=== PATIENT | female | born 1990 | race African-American/Black ===

== ENCOUNTER 2016-10-13 12:34 | Outpatient (CLI) | payer MEDICAID ==
[2016-10-13 13:30] LABS: APPEARANCE,URINE CLOUDY; BILIRUBIN,URINE NEGATIVE (NEGATIVE); GLUCOSE, URINE NEGATIVE (NEGATIVE); KETONES,URINE NEGATIVE (NEGATIVE); LEUKOCYTE ESTERASE,URINE TRACE (NEGATIVE); NITRITE,URINE NEGATIVE (NEGATIVE); PROTEIN,URINE 30 mg/dL (NEGATIVE); URINE SPECIFIC GRAVITY 1.016; UROBILINOGEN,URINE NEGATIVE mg/dL (<2.0)
[2016-10-13 13:49] LABS: URINE BARBITURATES SCREEN NEGATIVE; URINE METHADONE SCREEN NEGATIVE; URINE OPIATES LOW NEGATIVE; URINE PHENCYCLIDINE SCREEN NEGATIVE
--- NOTE | 2016-10-13 14:00 | L&D Flow Sheet ---
LD Flowsheet Datetime Report Generated by CPN: 10/13/2016 14:00 Datetime: 10/13/2016 13:54 Vital Signs NBP Sys/Kristy/Mean (mmHg): 108 (QS system process) : 64 (QS system process) : 81 (QS system process) Pulse: 86 (QS system process) Datetime: 10/13/2016 13:24 Vital Signs NBP Sys/Kristy/Mean (mmHg): 108 (QS system process) : 70 (QS system process) : 84 (QS system process) Pulse: 83 (QS system process) Datetime: 10/13/2016 13:15 Maternal Assessment Level of Consciousness: Fully Conscious (Crystal Richard RN) DTR's/Clonus: DTRs 2+; No Clonus (Crystal Richard, RN) Headache: Denies (Crystal Richard, RN) Breath Sounds, Left: Clear and Equal (Crystal Richard, RN) Breath Sounds, Right: Clear and Equal (Crystal Richard, RN) Nausea/Vomiting: Denies (Crystal Richard, RN) RUQ Epigastric Pain: Denies (Crystal Richard, RN) Teaching Instructional Method: Verbal; Patient Instructed; Verbalized Understanding (Crystal Richard RN) Plan of Care: Plan of Care Discussed (Crystal Richard RN) Unit Routine: Wesley to Room; Call Morgan; Bed; Handwashing; Monitoring; Bathroom Privileges (Crystal Richard RN) Datetime: 10/13/2016 13:04 Respirations: 14 (Crystal Richard RN) Temperature (F): 97.9 (Crystal Richard RN) Temperature (C): 36.6 (QS system process) Pain Pain Scale: 3 (Crystal Richard RN) Pain Presence: Constant (Crystal Richard RN) Pain Type: Cramping (Crystal Richard RN) Pain Location: Abdomen (Crystal Richard RN) Pain Relief Measures: Comfort Measures (Crystal Richard RN)
[2016-10-13 14:32] LABS: ABSOLUTE EOSINOPHILS # (AUTO) 0.1 10^3/uL (0.0-0.6); ABSOLUTE LYMPHOCYTES (AUTO) 2.4 10^3/uL (0.5-4.7); ABSOLUTE MONOCYTES (AUTO) 0.4 10^3/uL (0.1-1.4); BASOPHILS % (AUTO) 0.4 % (0-2); EOSINOPHILS % (AUTO) 0.8 % (0-6); HEMATOCRIT 37.4 % (36.0-47.0); HEMOGLOBIN 13.1 g/dL (12.0-15.5); HGB HCT DIFFERENCE 1.9; LYMPHOCYTES % (AUTO) 21.8 % (13-45); MEAN CORPUSCULAR HEMOGLOBIN 31.8 pg (27.0-33.4); MEAN CORPUSCULAR VOLUME 91 fl (80-97); RED BLOOD COUNT 4.11 10^6/uL (3.72-5.28); RED CELL DISTRIBUTION WIDTH 13.6 % (11.5-14.0)
[2016-10-13 14:36] LABS: PROTHROMBIN TIME 12.7 SEC (11.4-15.4)
[2016-10-13 14:37] LABS: PARTIAL THROMBOPLASTIN TIME 29.5 SEC (23.5-35.8)
[2016-10-13 17:43] LABS: TOTAL RBC COUNT 2129; TYPE IN FILE? TYPE IN FILE; VOL OF FETOMATERNAL HEMORRHAGE 0 ML (0)
== END 2016-10-13 15:36 | disposition home or self-care (01) ==
LOC: LC 12:34
PROVIDERS: ATTEND Student in an Organized Health Care Education/Training Program
DX: O26.893 Other specified pregnancy related conditions, third trimester (principal); R10.9 Unspecified abdominal pain; W19.XXXA Unspecified fall, initial encounter; Z3A.28 28 weeks gestation of pregnancy
CPT/HCPCS: 59899; 36415; 85025; 85362; 85610; 85730; 81001; 85460; 80307; 82731; 76815; G0480 ×2

== ENCOUNTER 2016-12-26 09:46 | Outpatient (CLI) | payer MEDICAID ==
[2016-12-26 10:31] LABS: APPEARANCE,URINE SLIGHTLY-CLOUDY; BILIRUBIN,URINE NEGATIVE (NEGATIVE); GLUCOSE, URINE NEGATIVE (NEGATIVE); KETONES,URINE NEGATIVE (NEGATIVE); LEUKOCYTE ESTERASE,URINE NEGATIVE (NEGATIVE); NITRITE,URINE NEGATIVE (NEGATIVE); PROTEIN,URINE NEGATIVE (NEGATIVE); URINE SPECIFIC GRAVITY 1.006; UROBILINOGEN,URINE NEGATIVE mg/dL (<2.0)
[2016-12-26 10:36] LABS: AMNISURE (ROM) NEGATIVE (NEGATIVE)
[2016-12-26 10:47] LABS: URINE BARBITURATES SCREEN NEGATIVE; URINE METHADONE SCREEN NEGATIVE; URINE OPIATES LOW NEGATIVE; URINE PHENCYCLIDINE SCREEN NEGATIVE
--- NOTE | 2016-12-26 11:01 | Non Stress Test Report ---
Non Stress Test Datetime Report Generated by CPN: 12/26/2016 11:01 DEMOGRAPHIC EGA NST: 39.1 INDICATION Indication for Study: Ordered by Provider Indication for Study (NST) Other: LC MONITORING Monitor Explained: Monitor Explained; Test Explained; Patient Verbalized Understanding Time on Monitor: 12/26/2016 10:02 Time off Monitor: 12/26/2016 11:00 NST Duration: 58 NST INTERVENTIONS NST Interventions: PO Hydration; Reposition Patient Physician Notified NST: Dr. Ochoa BABY A: [id number] BABY A Movement : Present Contraction Frequency : rare FHR Baseline : 140 Accelerations : 15X15 Decelerations : None Variability : Moderate 6-25bpm NST Review: Meets Criteria for Reactive NST NST Review and Verified By : Christine Nance RN NST Results: Reactive NST COMMENTS NST Comments: Dr. Ochoa on unit, reviewed strip NST REPORT Report Trigger: Send Report
--- NOTE | 2016-12-26 13:06 | L&D Discharge Summary ---
OB Discharge Summary Datetime Report Generated by CPN: 12/26/2016 13:06 DISCHARGE DIAGNOSIS Diagnosis/Symptoms: False Labor Diagnoses/Symptoms Other: Not in labor Gestation: 39.0 Number of Babies in Womb: 1 Parity: 1 DIET/ACTIVITY/RESTRICTIONS Diet: Regular Activity: Normal Activity TEACHING/INSTRUCTIONS/REFERRALS Instructions Given To: Patient Instructions Understood: Patient Verbalized Understanding Referrals: None Educational Materials- Other: Kick Counts DISCHARGE INFORMATION Discharged AMA: No Discharge Date/Time: 10/13/2016 15:36 Discharged To: Home Discharge Provider Name: CRashmi Moody CNM Accompanied By: self Discharge Method: Ambulatory Condition: Stable FOLLOW UP INFORMATION Follow Up With: [facility] Follow Up On: As Scheduled Follow Up Phone Number: [facility] -
--- NOTE | 2016-12-26 16:45 | L&D Discharge Summary ---
OB Discharge Summary Datetime Report Generated by CPN: 12/26/2016 16:45 DISCHARGE DIAGNOSIS Diagnosis/Symptoms: False Labor Diagnoses/Symptoms Other: not ruptured; false labor Gestation: 39.1 Number of Babies in Womb: 1 Parity: 1 DIET/ACTIVITY/RESTRICTIONS Diet: Regular Activity: Normal Activity TEACHING/INSTRUCTIONS/REFERRALS Instructions Given To: Patient and family member Instructions Understood: Patient Verbalized Understanding; Support Person Verbalized Understanding Referrals: None Educational Materials- Other: kick counts DISCHARGE INFORMATION Discharged AMA: No Discharge Date/Time: 12/26/2016 11:02 Discharged To: Home Discharge Provider Name: Dr. Ochoa Accompanied By: family member Discharge Method: Ambulatory Condition: Stable FOLLOW UP INFORMATION Follow Up With: [facility] Follow Up On: As Scheduled Follow Up Phone Number: [facility] - GENERAL INSTR-CALL PROVIDER IF: Contractions: Contractions or cramps become more frequent than 8 in one hour or 4 in 20 minutes; Regular painful contractions every 5 minutes or less for one hour. Time your contractions from the beginning of one to the beginning of the next Pressure: Pressure in your vagina or lower abdomen that may feel like the baby is pushing down Period Like Cramps: Period-like cramps or low dull backache that may come and go Cramps/Diarrhea: Abdominal cramps that may be accompanied by diarrhea Gush of Fluid/Blood: Gush of fluid or blood from your vagina (it is normal to have spotting after vaginal exam or intercourse) Vaginal Discharge: Change in the type or amount of vaginal discharge Decreased Movement: Your baby is not moving as much as usual- 4 movements in 1 hour after drinking and resting on side Temperature: Temperature greater than 100.0(F) orally
--- NOTE | 2016-12-26 16:45 | Antepartum Discharge Summary ---
Antepartum DC Datetime Report Generated by CPN: 12/26/2016 16:45 DIET/ACTIVITY/RESTRICTIONS Diet: Regular (12/26/2016 11:02:Marivel Nance RN) Activity: Normal Activity (12/26/2016 11:02:Marivel Nance, RN) TEACHING/INSTRUCTIONS/REFERRALS Instructions Given To: Patient and family member (12/26/2016 11:02:Marivel Nance RN) Instructions Understood: Patient Verbalized Understanding; Support Person Verbalized Understanding (12/26/2016 11:02:Marivel Nance RN) Referrals: None (12/26/2016 11:02:Marivel Nance RN) Educational Materials- Other: kick counts (12/26/2016 11:02:Marivel Nance RN) DISCHARGE INFORMATION Discharged AMA: No (12/26/2016 11:02:Marivel Nance RN) Discharge Date/Time: 12/26/2016 11:02 (12/26/2016 11:02:Marivel Nance RN) Discharged To: Home (12/26/2016 11:02:Marivel Nance RN) Discharge Provider Name: Dr. Ochoa (12/26/2016 11:02:Marivel Nance RN) Accompanied By: family member (12/26/2016 11:02:Marivel Nance RN) Discharge Method: Ambulatory (12/26/2016 11:02:Marivel Nance RN) Condition: Stable (12/26/2016 11:02:Marivel Nance RN) FOLLOW UP INFORMATION Follow Up With: [facility] (12/26/2016 11:02:Marivel Nance RN) Follow Up On: As Scheduled (12/26/2016 11:02:Marivel Nance RN) Follow Up Phone Number: [facility] - (12/26/2016 11:02:Marivel Nance RN) GENERAL INSTR-CALL PROVIDER IF: Contractions: Contractions or cramps become more frequent than 8 in one hour or 4 in 20 minutes; Regular painful contractions every 5 minutes or less for one hour. Time your contractions from the beginning of one to the beginning of the next (12/26/2016 11:02:Marivel Nance RN) Pressure: Pressure in your vagina or lower abdomen that may feel like the baby is pushing down (12/26/2016 11:02:Marivel Nnace RN) Period Like Cramps: Period-like cramps or low dull backache that may come and go (12/26/2016 11:02:Marivel Nance RN) Cramps/Diarrhea: Abdominal cramps that may be accompanied by diarrhea (12/26/2016 11:02:Marivel Nance RN) Gush of Fluid/Blood: Gush of fluid or blood from your vagina (it is normal to have spotting after vaginal exam or intercourse) (12/26/2016 11:02:Marivel Nance RN) Vaginal Discharge: Change in the type or amount of vaginal discharge (12/26/2016 11:02:Marivel Nance RN) Decreased Movement: Your baby is not moving as much as usual- 4 movements in 1 hour after drinking and resting on side (12/26/2016 11:02:Marivel Nance RN) Temperature: Temperature greater than 100.0(F) orally (12/26/2016 11:02:Marivel Nance RN) Hypertension Signs/Symptoms: Severe headache which is not relieved 30 minutes after taking Tylenol(Acetaminophen); Blurry vision or spots before your eyes; Severe heartburn or pain on the upper right side of your abdomen that is not relieved by an antacid; Increased swelling in your face, hands or feet (12/26/2016 11:02:Marivel Nance RN) Urinary Output: Decreased urinary output or dark colored urine (12/26/2016 11:02:Marivel Nance RN)
--- NOTE | 2016-12-26 16:45 | L&D General Admission ---
General Admit Datetime Report Generated by CPN: 12/26/2016 16:45 INFORMATION Patient Age: 26 (10/13/2016 12:35:QS system process) EDC: 01/01/2017 00:00 (10/13/2016 12:51:ADAM Montoya) LMP: 03/27/2016 00:00 (10/13/2016 12:51:ADAM Montoya) : 5 (10/13/2016 12:51:ADAM Montoya) Para: 1 (10/13/2016 15:42:Crystal Richard RN) Para: 1 (10/13/2016 12:51:ADAM Montoya) Term: 1 (10/13/2016 12:51:Crystal Richard RN) : 0 (10/13/2016 12:51:Crystal Richard RN) Livin (10/13/2016 12:51:Crystal Richard RN) Cesareans: 0 (10/13/2016 12:51:Marivel Nance RN) Baby, Number in Womb: 1 (10/13/2016 15:42:Crystal Richard RN) CARE Primary Paint Stockman: [facility] (10/13/2016 12:51:Crystal Richard RN) Paint Stockman Other: [facility] (10/13/2016 12:51:Crystal Richard RN) Month of 1st Visit: June (10/13/2016 12:51:Crystal Richard RN) Prepregnancy Weight (lb): 122 (10/13/2016 12:51:Crystal Richard RN) Prepregnancy Weight (kg): 55.5 (10/13/2016 12:51:QS system process) Height (in): 66 (12/26/2016 10:09:QS system process) Height (in): 66 (10/13/2016 12:55:QS system process) ALLERGIES Medication Allergy: No (10/13/2016 12:51:Crystal Richard RN) Medication Allergies: No Known Allergies (12/26/2016) (12/26/2016 10:08:QS system process) Medication Allergies: No Known Allergies (07/07/2015) (10/13/2016 12:35:QS system process) Latex Allergy: No Latex Allergies (10/13/2016 12:51:Crystal Richard RN) Food Allergies: denies (10/13/2016 12:51:Marivel Nance RN) Environmental Allergies: denies (10/13/2016 12:51:Marivel Nance RN) COMMUNICATION Primary Language: Canadian (10/13/2016 12:51:Crystal Richard RN) Medical Tx Preferred Language: Canadian (10/13/2016 12:51:Crystal Richard RN) DEMOGRAPHICS Address: [address] [place] [id number] (10/13/2016 12:35:QS system process) Zipcode: [phone] (10/13/2016 12:35:QS system process) Home (10/13/2016 12:35:QS system process) SSN: [id number] (10/13/2016 12:35:QS system process) Next of Kin Name: AYAN JIANG (10/13/2016 12:35:QS system process) Next of Kin (10/13/2016 12:35:QS system process) Next of Kin Relationship: MO (10/13/2016 12:35:QS system process) Date of : 1990 (10/13/2016 12:35:QS system process) Marital Status: Single (10/13/2016 12:35:QS system process) Sex: Female (10/13/2016 12:35:QS system process) Race: (10/13/2016 12:35:QS system process) Ethnicity: Non- or (10/13/2016 12:35:QS system process) Anglican: None (10/13/2016 12:35:QS system process) DRUG AND ALCOHOL USE Alcohol: No (10/13/2016 12:51:Crystal Richard RN) Cigarettes: Former Smoker. [id number] (10/13/2016 12:51:Crystal Richard RN) Marijuana: Yes (10/13/2016 12:51:Crystal Richard RN) Marijuana Comments: early in (10/13/2016 12:51:Crystal Richard RN) Cocaine: No (10/13/2016 12:51:Crystal Richard RN) Other Illicit Drugs: No (10/13/2016 12:51:Crystal Richard RN) VACCINE HISTORY Influenza Vaccine: No (10/13/2016 12:51:Crystal Richard RN) Pneumococcal Vaccine: No (10/13/2016 12:51:Crystal Richard RN) Tetanus Vaccine: Uncertain (10/13/2016 12:51:Crystal Richard RN) Tdap Vaccine: Uncertain (10/13/2016 12:51:Crystal Richard RN) Hepatitis B Vaccine: Uncertain (10/13/2016 12:51:Crystal Richard RN) Feeding Preference: Both (10/13/2016 12:51:Crystal Richard RN) Benefit of Breast Feed Discussed: Yes (10/13/2016 12:51:Crystal Richard RN) Circumcision: N/A (10/13/2016 12:51:Crystal Richard RN) Classes Attended: No (10/13/2016 12:51:Crystal Richard RN) Tubal Ligation: Yes (10/13/2016 12:51:Crystal Richard RN) Tubal Authorization Signed: N/A (10/13/2016 12:51:Crystal Richard RN) Consent: N/A (10/13/2016 12:51:Crystal Richard RN) Consent Signed: N/A (10/13/2016 12:51:Crystal Richard RN) Pain Management Plans: Epidural (10/13/2016 12:51:Crystal Richard RN) Plans for Labor and Delivery: None (10/13/2016 12:51:Crystal Richard RN) Support Person: Ayan Jiang (10/13/2016 12:51:Crystal Richard RN) Support Person Relationship: Mother (10/13/2016 12:51:Crystal Richard RN) Cultural/Spritual Practice: No (10/13/2016 12:51:Crystal Richard RN) Spir/Cult Dietary Needs: No (10/13/2016 12:51:Crystal Richard RN) LIVING SITUATION/DISCHARGE PLAN Living Arrangements: House (10/13/2016 12:51:Crystal Richard RN) Adequate Access to:: Electric; Heat; Refrigeration; Plumbing/Running water; Phone; Transportation (10/13/2016 12:51:Crystal Richard RN) WIC Program: Yes (10/13/2016 12:51:Crystal Richard RN) Discharge Rose Grading Supervisor Person: Mother (10/13/2016 12:51:Crystal Richard RN) Person to Help after Discharge: Mother (10/13/2016 12:51:Crystal Richard RN) Currently Using Commun Resources: Yes (10/13/2016 12:51:Crystal Richard RN) Specify Current Resource Used: Food stamps (10/13/2016 12:51:Crystal Richard RN) Outside Agency/Broadcast Engineer: No (10/13/2016 12:51:Crystal Richard RN) Car Seat for Discharge: Yes (10/13/2016 12:51:Crystal Richard RN) Adoption Requested: No (10/13/2016 12:51:Crystal Richard RN) Pt Contact w/infant Post : N/A (10/13/2016 12:51:Crystal Richard RN) LABS Blood Type: O Positive (10/13/2016 12:51:Crystal Richard RN) Antibody Screen: negative (10/13/2016 12:51:Crystal Richard RN) Hemoglobin: 13.1 (10/13/2016 14:13:QS system process) Hematocrit: 37.4 (10/13/2016 14:13:QS system process) MCV: 91 (10/13/2016 14:13:QS system process) Group Beta Strep: Negative (10/13/2016 12:51:Marivel Nance RN) Group Beta Strep: negative (10/13/2016 12:51:Crystal Richard RN) Gonorrhea: Negative (10/13/2016 12:51:Marivel Nance RN) Chlamydia: Negative (10/13/2016 12:51:Crystal Richard RN) RPR/VDRL: Nonreactive (10/13/2016 12:51:Crystal Richard RN) HIV Exposure Test: Negative (10/13/2016 12:51:Crystal Richard RN) Hepatitis B: Negative (10/13/2016 12:51:Crystal Richard RN) Rubella: Immune (10/13/2016 12:51:Crystal Richard RN) Varicella: Non Susceptible (10/13/2016 12:51:Crystal Richard RN) OB/PREVIOUS HISTORY LMP: 03/27/2016 00:00 (10/13/2016 12:51:ADAM Montoya) Previous Procedures: Ultrasound; NST (10/13/2016 12:51:Crystal Richard RN) Current Procedures: Ultrasound (10/13/2016 12:51:Crystal Richard RN) History of Previous : No (10/13/2016 12:51:Crystal Richard RN) History of Gestational Diabetes: No (10/13/2016 12:51:Crystal Richard RN) History of PIH: No (10/13/2016 12:51:Crystal Richard RN) History of Incompetent Cervix: No (10/13/2016 12:51:Crystal Richard RN) History of Placenta Previa/Abrup: No (10/13/2016 12:51:Crystal Richard RN) History of Macrosomia: No (10/13/2016 12:51:Crystal Richard RN) History of IUGR: No (10/13/2016 12:51:Crystal Richard RN) History of Hemorrhage: No (10/13/2016 12:51:Crystal Richard RN) History of Loss/Stillborn: No (10/13/2016 12:51:Crystal Richard RN) History of : No (10/13/2016 12:51:Crystal Richard RN) History of D (Rh) Sensitization: No (10/13/2016 12:51:Crystal Richard RN) History Recurrent Loss/Stillborn: No (10/13/2016 12:51:Crystal Richard RN) History Depression/PP Depression: No (10/13/2016 12:51:Crystal Richard RN) History of Uterine Anomaly/DEEPA: No (10/13/2016 12:51:Crystal Richard RN) History of Infertility: No (10/13/2016 12:51:Crystal Richard RN) History of ART Treatment: No (10/13/2016 12:51:Crystal Richard RN) History of DEEPA: No (10/13/2016 12:51:Crystal Richard RN) Comments Obstetrical History: G1: 2007, , no complications G2: SAB 2008 G3: EAB 2014 G4: current (10/13/2016 12:51:Crystal Richard RN) MEDICAL HISTORY Med Hx Diabetes: No (10/13/2016 12:51:Crystal Richard RN) Med Hx Hypertension: No (10/13/2016 12:51:Crystal Richard RN) Med Hx Heart Disease: No (10/13/2016 12:51:Crystal Richard RN) Med Hx Autoimmune Disorder: No (10/13/2016 12:51:Crystal Richard RN) Med Hx Kidney Disease/UTI: No (10/13/2016 12:51:Crystal Richard RN) Med Hx Neurologic/Epilepsy: No (10/13/2016 12:51:Crystal Richard RN) Med Hx Psychiatric Disorders: Yes (10/13/2016 12:51:Crystal Richard RN) Med Hx Hepatitis/Liver Disease: No (10/13/2016 12:51:Crystal Richard RN) Med Hx Varicosities/Phlebitis: No (10/13/2016 12:51:Crystal Richard RN) Med Hx Thyroid Dysfunction: No (10/13/2016 12:51:Crystal Richard RN) Med Hx Trauma/Violence: No (10/13/2016 12:51:Crystal Richard RN) Med Hx Blood Transfusion: No (10/13/2016 12:51:Crystal Richard RN) Med Hx Pulmonary (Asthma,TB): No (10/13/2016 12:51:Crystal Richard RN) Med Hx Breast: No (10/13/2016 12:51:Crystal Richard RN) Med Hx CATH LAB TECH Surgery: No (10/13/2016 12:51:Crystal Richard RN) Med Hx Hospitalization/Surgery: Yes (10/13/2016 12:51:Crystal Richard RN) Med Hx Anesthetic Complications: No (10/13/2016 12:51:Crystal Richard RN) Med Hx Abnormal Pap Smear: Yes (10/13/2016 12:51:Crystal Richard RN) Other Medical Diseases: No (10/13/2016 12:51:Crystal Richard RN) Med Hx Significant Family Hx: No (10/13/2016 12:51:Crystal Richard RN) Details of Med/Surg Hx: Pt states she feels like she will have PP depression - pregancy not planned and pt constantly emotional, multiple abnl paps, chronic BV (10/13/2016 12:51:Crystal Richard RN) INFECTIOUS HISTORY Inf Hx Gonorrhea: No (10/13/2016 12:51:Crystal Richard RN) Inf Hx Chlamydia: No (10/13/2016 12:51:Crystal Richard RN) Inf Hx Syphilis: No (10/13/2016 12:51:Crystal Richard RN) Inf Hx HIV/AIDS: No (10/13/2016 12:51:Crystal Richard RN) Inf Hx Human Papilloma Virus: No (10/13/2016 12:51:Crystal Richard RN) Inf Hx Pt/Partner Genital Herpes: No (10/13/2016 12:51:Crystal Richard RN) Inf Hx Tuberculosis/Exposure: No (10/13/2016 12:51:Crystal Richard RN) Inf Hx Hepatitis B,C: No (10/13/2016 12:51:Crystal Richard RN) Inf Hx Rash or Viral Illness: No (10/13/2016 12:51:Crystal Richard RN) GENETIC HISTORY Gen Hx Age >=35 at RUDY: No (10/13/2016 12:51:Crystal Richard RN) Gen Hx Thalassemia: No (10/13/2016 12:51:Crystal Richard RN) Gen Hx Congenital Heart Defect: No (10/13/2016 12:51:Crystal Richard RN) Gen Hx Neural Tube Defect: No (10/13/2016 12:51:Crystal Richard RN) Gen Hx Down's Syndrome: No (10/13/2016 12:51:Crystal Richard RN) Gen Hx Jose-Sachs: No (10/13/2016 12:51:Crystal Richard RN) Gen Hx Froylan: No (10/13/2016 12:51:Crystal Richard RN) Gen Hx Familial Dysautonomia: No (10/13/2016 12:51:Crystal Richard RN) Gen Hx Sickle Cell Disease/Trait: No (10/13/2016 12:51:Crystal Richard RN) Gen Hx Hemophilia/Blood Disorder: No (10/13/2016 12:51:Crystal Richard RN) Gen Hx Muscular Dystrophy: No (10/13/2016 12:51:Crystal Richard RN) Gen Hx Cystic Fibrosis: No (10/13/2016 12:51:Crystal Richard RN) Gen Hx Huntingtons Chorea: No (10/13/2016 12:51:Crystal Richard RN) Gen Hx Mental Retardation/Autism: No (10/13/2016 12:51:Crystal Richard RN) Gen Hx Tested for Fragile X: No (10/13/2016 12:51:Crystal Richard RN) Gen Hx Other Inher/Chromosomal: No (10/13/2016 12:51:Crystal Richard RN) Gen Hx Maternal Metabolic DO: No (10/13/2016 12:51:Crystal Richard RN) Gen Hx Pt Father or FOB Defect: No (10/13/2016 12:51:Crystal Richard RN) Gen Hx Other Genetic History: No (10/13/2016 12:51:Crystal Richard RN) Gen Hx Drugs/Meds since LMP: Yes (10/13/2016 12:51:Crystal Richard RN) Gen Hx Medications: PNV, Flagyl, vaginal cream (10/13/2016 12:51:Crystal Richard RN)
--- NOTE | 2016-12-26 16:45 | L&D Flow Sheet ---
LD Flowsheet Datetime Report Generated by CPN: 12/26/2016 16:45 Datetime: 12/26/2016 10:58 Uterine Activity Monitor Mode: External (Marivel Nance RN) Quality: Mild (Marivel Nance RN) Resting Tone (Palpate): Relaxed (Marivel Nance RN) Contraction Comments: uterine irritability. patient denies contractions (Marivel Nance RN) Assessment A Monitor Mode: External US (Marivel Goyo, RN) FHR Baseline Rate : 140 (Marivel Goyo, RN) FHR Baseline Changes: No Baseline Change (Marivel Henderson, RN) Variability: Moderate 6-25 bpm (Marivel Henderson, RN) Accelerations: 15X15 (Marivel Henderson, RN) Decelerations: None (Marivel Goyo, RN) Datetime: 12/26/2016 10:50 Vital Signs Stage of : Antepartum (Marivel Goyo, RN) Communication Communication: Provider Orders Received (Marivel Nance RN) Provider Notified (Name): Dr. Ochoa on unit, reviewed reactive FHT strip. Notified of patient OB history, chief complaint of lower pelvic pressure and suspectyed rupture of membranes. Also notified of normal urinalysis, and negative amnisure results. Orders received to discharge patient home to self care. Discussed reasons to return. All questions answered. Agreeable to plan of care. (Marivel Nance RN) Datetime: 12/26/2016 10:49 I/O Interventions: Up to BR (Marivel Nance RN) Datetime: 12/26/2016 10:34 Vital Signs Stage of : Antepartum (Marivel Nance, RN) NBP Sys/Kristy/Mean (mmHg): 96 (QS system process) : 64 (QS system process) : 76 (QS system process) Pulse: 94 (QS system process) Respirations: 12 (Marivel Nance, RN) LaborFlag: Antepartum (QS system process) Datetime: 12/26/2016 10:30 Uterine Activity Monitor Mode: External; Palpation (Marivel Goyo, RN) Frequency (min): rare (Marivel Nacne, RN) Quality: Mild (Marivel Nance, RN) Resting Tone (Palpate): Relaxed (Marivel Nance, RN) Contraction Comments: patient denies feeling contractions at this time and none noted on monitor or by palpation. Patient report lower pelvic pressure. (Marivel Nance, RN) Assessment A Monitor Mode: External US (Marivel Nance, RN) FHR Baseline Rate : 140 (Marivel Nance, RN) FHR Baseline Changes: No Baseline Change (Marivel Nance, RN) Variability: Moderate 6-25 bpm (Marivel Goyo, RN) Accelerations: 15X15 (Marivel Mcnairard, RN) Decelerations: None (Marivel Nance, RN) Comments: reports positive movement (Marivel Nance, RN) Datetime: 12/26/2016 10:27 Monitor Interventions for UA: [place] Adjusted (Marivel Nance, RN) Quality: Mild (Marivel Nance, RN) Resting Tone (Palpate): Relaxed (Marivel Nance, RN) Assessment A Monitor Mode: External US (Marivel Nance, RN) Monitor Interventions for FHR: Ultrasound Adjusted (Marivel Henderson, RN) FHR Baseline Rate : 140 (Marivel Nance, RN) Variability: Moderate 6-25 bpm (Marivel Henderson, RN) Accelerations: 15X15 (Marivel Goyo, RN) Decelerations: None (Marivel Henderson, RN) Pain Pain Scale: 1 (Marivel Nance, ) Pain Presence: Intermittent (Marivel Goyo, RN) Pain Type: Pressure (Marivel Nance, RN) Pain Location: Abdomen (Marivel Henderson, RN) Pain Goal: 1 (Marivel Henderson, RN) Pain Relief Measures: Comfort Measures (Marivel Henderson, RN) Pain Coping: Talking Through Contractions (Marivel Nance, RN) Vaginal Exam Dilatation (cm): 1.0 (Marivel Nance, RN) Effacement (%): 70 (Marivel Mcnairard, RN) Station: -1 (Marivel Mcnairard, RN) Exam by: ROJELIO Mckoy (Marivelmyesha Nance, RN) Vaginal Bleeding: None (Marivel Nance, RN) Maternal Assessment Level of Consciousness: Fully Conscious (Marivel Henderson, RN) DTR's/Clonus: DTRs 2+; No Clonus (Marivel Goyo, RN) Headache: Denies (Marivel Goyo, RN) Breath Sounds, Left: Clear and Equal (Marivel Henderson, RN) Breath Sounds, Right: Clear and Equal ([facility]) Nausea/Vomiting: Present ([facility], RN) RUQ Epigastric Pain: Denies (Marivel Mcnairard, RN) Patient Care Oxygen Method: Room Air (Marivel Nance RN) Patient Position/Activity: Left Tilt; Semi-Fowlers (Marivel Nance RN) Comfort Measures: Breathing/Relaxation; Family Support (Marivel Nance RN) I/O Interventions: Ice Chips Given; Clear Liquids Given (Marivel Nance RN) Teaching Instructional Method: Verbal; Patient Instructed; Family/Support Person Instructed; Verbalized Understanding (Marivel Nance RN) Plan of Care: Plan of Care Discussed (Marivel Nance RN) Unit Routine: [place] to Room; Call [place]; Bed; Visiting Policy; Unit Personnel; Handwashing; Flu/Illness Precautions; Monitoring; Safety/Fall Risk Prevention (Marivel Nance, ROJELIO) Pain Management: Pain Scale/Goals; Comfort Measures (Marivel Nance, ROJELIO) Related: Common Discomforts of ; Maternal Physical Changes; Maternal Emotional Changes; Nutrition; Hydration; Activity and Rest (Marivel Nance, RN) LaborFlag: Antepartum (QS system process) Datetime: 12/26/2016 10:23 I/O Interventions: Up to BR (Marivel Goyo, RN) Datetime: 12/26/2016 10:04 NBP Sys/Kristy/Mean (mmHg): 101 (QS system process) : 66 (QS system process) : 79 (QS system process) Pulse: 84 (QS system process) LaborFlag: Antepartum (QS system process) Datetime: 12/26/2016 10:01 Vital Signs Stage of : Antepartum (Marivel Henderson, RN) Datetime: 10/13/2016 13:04 Temperature (C): 36.6 (QS system process)
--- NOTE | 2016-12-26 16:45 | L&D Current Admission ---
Current Admit Datetime Report Generated by CPN: 12/26/2016 16:45 ADMISSION INFORMATION Chief Complaint: Contractions; Suspected Rupture of Membranes (12/26/2016 10:27:Marivel Nance RN) Chief Complaint: Uterine Cramping (10/13/2016 13:15:Crystal Richard RN)
--- NOTE | 2016-12-26 22:45 | Antepartum Discharge Summary ---
Antepartum DC Datetime Report Generated by CPN: 12/26/2016 22:45 DIET/ACTIVITY/RESTRICTIONS Diet: Regular (12/26/2016 11:02:Marivel Nance RN) Activity: Normal Activity (12/26/2016 11:02:Marivel Nance, RN) TEACHING/INSTRUCTIONS/REFERRALS Instructions Given To: Patient and family member (12/26/2016 11:02:Marivel Nance RN) Instructions Understood: Patient Verbalized Understanding; Support Person Verbalized Understanding (12/26/2016 11:02:Marivel Nance RN) Referrals: None (12/26/2016 11:02:Marivel Nance RN) Educational Materials- Other: kick counts (12/26/2016 11:02:Marivel Nance RN) DISCHARGE INFORMATION Discharged AMA: No (12/26/2016 11:02:Marivel Nance RN) Discharge Date/Time: 12/26/2016 11:02 (12/26/2016 11:02:Marivel Nance RN) Discharged To: Home (12/26/2016 11:02:Marivel Nance RN) Discharge Provider Name: Dr. Ochoa (12/26/2016 11:02:Marivel Nance RN) Accompanied By: family member (12/26/2016 11:02:Marivel Nance RN) Discharge Method: Ambulatory (12/26/2016 11:02:Marivel Nance RN) Condition: Stable (12/26/2016 11:02:Marivel Nance RN) FOLLOW UP INFORMATION Follow Up With: [facility] (12/26/2016 11:02:Marivel Nance RN) Follow Up On: As Scheduled (12/26/2016 11:02:Marivel Nance RN) Follow Up Phone Number: [facility] - (12/26/2016 11:02:Marivel Nance RN) GENERAL INSTR-CALL PROVIDER IF: Contractions: Contractions or cramps become more frequent than 8 in one hour or 4 in 20 minutes; Regular painful contractions every 5 minutes or less for one hour. Time your contractions from the beginning of one to the beginning of the next (12/26/2016 11:02:Marivel Nance RN) Pressure: Pressure in your vagina or lower abdomen that may feel like the baby is pushing down (12/26/2016 11:02:Marivel Nance RN) Period Like Cramps: Period-like cramps or low dull backache that may come and go (12/26/2016 11:02:Marivel Nance RN) Cramps/Diarrhea: Abdominal cramps that may be accompanied by diarrhea (12/26/2016 11:02:Marivel Nance RN) Gush of Fluid/Blood: Gush of fluid or blood from your vagina (it is normal to have spotting after vaginal exam or intercourse) (12/26/2016 11:02:Marivel Nance RN) Vaginal Discharge: Change in the type or amount of vaginal discharge (12/26/2016 11:02:Marivel Nance RN) Decreased Movement: Your baby is not moving as much as usual- 4 movements in 1 hour after drinking and resting on side (12/26/2016 11:02:Marivel Nance RN) Temperature: Temperature greater than 100.0(F) orally (12/26/2016 11:02:Marivel Nance RN) Hypertension Signs/Symptoms: Severe headache which is not relieved 30 minutes after taking Tylenol(Acetaminophen); Blurry vision or spots before your eyes; Severe heartburn or pain on the upper right side of your abdomen that is not relieved by an antacid; Increased swelling in your face, hands or feet (12/26/2016 11:02:Marivel Nance RN) Urinary Output: Decreased urinary output or dark colored urine (12/26/2016 11:02:Marivel Nance RN)
--- NOTE | 2016-12-26 22:45 | L&D Current Admission ---
Current Admit Datetime Report Generated by CPN: 12/26/2016 22:45 ADMISSION INFORMATION Chief Complaint: Contractions; Suspected Rupture of Membranes (12/26/2016 10:27:Marivel Nance RN) Chief Complaint: Uterine Cramping (10/13/2016 13:15:Crystal Richard RN)
--- NOTE | 2016-12-26 22:45 | L&D Flow Sheet ---
LD Flowsheet Datetime Report Generated by CPN: 12/26/2016 22:45 Datetime: 12/26/2016 10:58 Monitor Mode: External (Marivel Nance, RN) Quality: Mild (Marivel Nance, RN) Resting Tone (Palpate): Relaxed (Marivel Nance, RN) Contraction Comments: uterine irritability. patient denies contractions (Marivel Nance, RN) Monitor Mode: External US (Marivel Nance, RN) FHR Baseline Rate : 140 (Marivel Nance, RN) FHR Baseline Changes: No Baseline Change (Marivel Mcnairard, RN) Variability: Moderate 6-25 bpm (Marivel Goyo, RN) Accelerations: 15X15 (Marivel Mcnairard, RN) Decelerations: None (Marivel Mcnairard, RN) Datetime: 12/26/2016 10:50 Stage of : Antepartum (Marivel Nance RN) Communication: Provider Orders Received (Marivel Nance RN) Provider Notified (Name): Dr. Ochoa on unit, reviewed reactive FHT strip. Notified of patient OB history, chief complaint of lower pelvic pressure and suspectyed rupture of membranes. Also notified of normal urinalysis, and negative amnisure results. Orders received to discharge patient home to self care. Discussed reasons to return. All questions answered. Agreeable to plan of care. (Marivel Nance RN) Datetime: 12/26/2016 10:49 I/O Interventions: Up to BR (Marivel Nance RN) Datetime: 12/26/2016 10:34 Stage of : Antepartum (Marivel Nance RN) Respirations: 12 (Marivel Nance RN) LaborFlag: Antepartum (QS system process) Datetime: 12/26/2016 10:30 Monitor Mode: External; Palpation (Marivel Nance RN) Frequency (min): rare (Marivel Nance RN) Quality: Mild (Marivel Nance RN) Resting Tone (Palpate): Relaxed (Marivel Nance RN) Contraction Comments: patient denies feeling contractions at this time and none noted on monitor or by palpation. Patient report lower pelvic pressure. (Marivel Nance, ROJELIO) Monitor Mode: External US (Marivel Nance, ROJELIO) FHR Baseline Rate : 140 (Marivel Nance RN) FHR Baseline Changes: No Baseline Change (Marivel Nance RN) Variability: Moderate 6-25 bpm (Marivel Nance, RN) Accelerations: 15X15 (Marivel Nance, RN) Decelerations: None (Marivel Nance, RN) Comments: reports positive movement (Marivel Nance, ROJELIO) Datetime: 12/26/2016 10:27 LaborFlag: Antepartum (QS system process) Datetime: 12/26/2016 10:23 I/O Interventions: Up to BR (Marivel Nance, ROJELIO)
--- NOTE | 2016-12-26 22:45 | L&D Discharge Summary ---
OB Discharge Summary Datetime Report Generated by CPN: 12/26/2016 22:45 DISCHARGE DIAGNOSIS Diagnosis/Symptoms: False Labor Diagnoses/Symptoms Other: not ruptured; false labor Gestation: 39.1 Number of Babies in Womb: 1 Parity: 1 DIET/ACTIVITY/RESTRICTIONS Diet: Regular Activity: Normal Activity TEACHING/INSTRUCTIONS/REFERRALS Instructions Given To: Patient and family member Instructions Understood: Patient Verbalized Understanding; Support Person Verbalized Understanding Referrals: None Educational Materials- Other: kick counts DISCHARGE INFORMATION Discharged AMA: No Discharge Date/Time: 12/26/2016 11:02 Discharged To: Home Discharge Provider Name: Dr. Ocoha Accompanied By: family member Discharge Method: Ambulatory Condition: Stable FOLLOW UP INFORMATION Follow Up With: [facility] Follow Up On: As Scheduled Follow Up Phone Number: [facility] - GENERAL INSTR-CALL PROVIDER IF: Contractions: Contractions or cramps become more frequent than 8 in one hour or 4 in 20 minutes; Regular painful contractions every 5 minutes or less for one hour. Time your contractions from the beginning of one to the beginning of the next Pressure: Pressure in your vagina or lower abdomen that may feel like the baby is pushing down Period Like Cramps: Period-like cramps or low dull backache that may come and go Cramps/Diarrhea: Abdominal cramps that may be accompanied by diarrhea Gush of Fluid/Blood: Gush of fluid or blood from your vagina (it is normal to have spotting after vaginal exam or intercourse) Vaginal Discharge: Change in the type or amount of vaginal discharge Decreased Movement: Your baby is not moving as much as usual- 4 movements in 1 hour after drinking and resting on side Temperature: Temperature greater than 100.0(F) orally
--- NOTE | 2016-12-26 22:45 | L&D General Admission ---
General Admit Datetime Report Generated by CPN: 12/26/2016 22:45 INFORMATION Patient Age: 26 (10/13/2016 12:35:QS system process) EDC: 01/01/2017 00:00 (10/13/2016 12:51:ADAM Montoya) LMP: 03/27/2016 00:00 (10/13/2016 12:51:ADAM Montoya) : 5 (10/13/2016 12:51:ADAM Montoya) Para: 1 (10/13/2016 15:42:Crystal Richard RN) Para: 1 (10/13/2016 12:51:ADAM Montoya) Term: 1 (10/13/2016 12:51:Crystal Richard RN) : 0 (10/13/2016 12:51:Crystal Richard RN) Livin (10/13/2016 12:51:Crystal Richard RN) Cesareans: 0 (10/13/2016 12:51:Marivel Nance RN) Baby, Number in Womb: 1 (10/13/2016 15:42:Crystal Richard RN) CARE Primary Glass Ribbon Machine Operator Assistant: [facility] (10/13/2016 12:51:Crystal Richard RN) Glass Ribbon Machine Operator Assistant Other: [facility] (10/13/2016 12:51:Crystal Richard RN) Month of 1st Visit: June (10/13/2016 12:51:Crystal Richard RN) Prepregnancy Weight (lb): 122 (10/13/2016 12:51:Crystal Richard RN) Prepregnancy Weight (kg): 55.5 (10/13/2016 12:51:QS system process) Height (in): 66 (12/26/2016 10:09:QS system process) Height (in): 66 (10/13/2016 12:55:QS system process) ALLERGIES Medication Allergy: No (10/13/2016 12:51:Crystal Richard RN) Medication Allergies: No Known Allergies (12/26/2016) (12/26/2016 10:08:QS system process) Medication Allergies: No Known Allergies (07/07/2015) (10/13/2016 12:35:QS system process) Latex Allergy: No Latex Allergies (10/13/2016 12:51:Crystal Richard RN) Food Allergies: denies (10/13/2016 12:51:Marivel Nance RN) Environmental Allergies: denies (10/13/2016 12:51:Marivel Nance RN) COMMUNICATION Primary Language: Malawian (10/13/2016 12:51:rCystal Richard RN) Medical Tx Preferred Language: Malawian (10/13/2016 12:51:Crystal Richard RN) DEMOGRAPHICS Address: [address] [place] [phone] (10/13/2016 12:35:QS system process) Zipcode: [phone] (10/13/2016 12:35:QS system process) Home (10/13/2016 12:35:QS system process) SSN: [id number] (10/13/2016 12:35:QS system process) Next of Kin Name: AYAN JIANG (10/13/2016 12:35:QS system process) Next of Kin (10/13/2016 12:35:QS system process) Next of Kin Relationship: MO (10/13/2016 12:35:QS system process) Date of : 1990 (10/13/2016 12:35:QS system process) Marital Status: Single (10/13/2016 12:35:QS system process) Sex: Female (10/13/2016 12:35:QS system process) Race: (10/13/2016 12:35:QS system process) Ethnicity: Non- or (10/13/2016 12:35:QS system process) Protestant: None (10/13/2016 12:35:QS system process) DRUG AND ALCOHOL USE Alcohol: No (10/13/2016 12:51:Crystal Richard RN) Cigarettes: Former Smoker. [id number] (10/13/2016 12:51:Crystal Richard RN) Marijuana: Yes (10/13/2016 12:51:Crystal Richard RN) Marijuana Comments: early in (10/13/2016 12:51:Crystal Richard RN) Cocaine: No (10/13/2016 12:51:Crystal Richard RN) Other Illicit Drugs: No (10/13/2016 12:51:Crystal Richard RN) VACCINE HISTORY Influenza Vaccine: No (10/13/2016 12:51:Crystal Richard RN) Pneumococcal Vaccine: No (10/13/2016 12:51:Crystal Richard RN) Tetanus Vaccine: Uncertain (10/13/2016 12:51:Crystal Richard RN) Tdap Vaccine: Uncertain (10/13/2016 12:51:Crystal Richard RN) Hepatitis B Vaccine: Uncertain (10/13/2016 12:51:Crystal Richard RN) Feeding Preference: Both (10/13/2016 12:51:Crystal Richard RN) Benefit of Breast Feed Discussed: Yes (10/13/2016 12:51:Crysatl Richard RN) Circumcision: N/A (10/13/2016 12:51:Crystal Richard RN) Classes Attended: No (10/13/2016 12:51:Crystal Richard RN) Tubal Ligation: Yes (10/13/2016 12:51:Crystal Richard RN) Tubal Authorization Signed: N/A (10/13/2016 12:51:Crystal Richard RN) Consent: N/A (10/13/2016 12:51:Crystal Richard RN) Consent Signed: N/A (10/13/2016 12:51:Crystal Richard RN) Pain Management Plans: Epidural (10/13/2016 12:51:Crystal Richard RN) Plans for Labor and Delivery: None (10/13/2016 12:51:Crystal Richard RN) Support Person: Ayan Jiang (10/13/2016 12:51:Crystal Richard RN) Support Person Relationship: Mother (10/13/2016 12:51:Crystal Richard RN) Cultural/Spritual Practice: No (10/13/2016 12:51:Crystal Richard RN) Spir/Cult Dietary Needs: No (10/13/2016 12:51:Crystal Richard RN) LIVING SITUATION/DISCHARGE PLAN Living Arrangements: House (10/13/2016 12:51:Crystal Richard RN) Adequate Access to:: Electric; Heat; Refrigeration; Plumbing/Running water; Phone; Transportation (10/13/2016 12:51:Crystal Richard RN) WIC Program: Yes (10/13/2016 12:51:Crystal Richard RN) Discharge Welder/Fabricator Person: Mother (10/13/2016 12:51:Crystal Richard RN) Person to Help after Discharge: Mother (10/13/2016 12:51:Crystal Richard RN) Currently Using Commun Resources: Yes (10/13/2016 12:51:Crystal Richard RN) Specify Current Resource Used: Food stamps (10/13/2016 12:51:Crystal Richard RN) Outside Agency/Staff Training And Development Manager: No (10/13/2016 12:51:Crystal Richard RN) Car Seat for Discharge: Yes (10/13/2016 12:51:Crystal Richard RN) Adoption Requested: No (10/13/2016 12:51:Crystal Richard RN) Pt Contact w/infant Post : N/A (10/13/2016 12:51:Crystal Richard RN) LABS Blood Type: O Positive (10/13/2016 12:51:Crystal Richard RN) Antibody Screen: negative (10/13/2016 12:51:Crystal Richard RN) Hemoglobin: 13.1 (10/13/2016 14:13:QS system process) Hematocrit: 37.4 (10/13/2016 14:13:QS system process) MCV: 91 (10/13/2016 14:13:QS system process) Group Beta Strep: Negative (10/13/2016 12:51:Marivel Nance RN) Group Beta Strep: negative (10/13/2016 12:51:Crystal Richard RN) Gonorrhea: Negative (10/13/2016 12:51:Marivel Nance RN) Chlamydia: Negative (10/13/2016 12:51:Crystal Richard RN) RPR/VDRL: Nonreactive (10/13/2016 12:51:Crystal Richard RN) HIV Exposure Test: Negative (10/13/2016 12:51:Crystal Richard RN) Hepatitis B: Negative (10/13/2016 12:51:Crystal Richard RN) Rubella: Immune (10/13/2016 12:51:Crystal Richard RN) Varicella: Non Susceptible (10/13/2016 12:51:Crystal Richard RN) OB/PREVIOUS HISTORY LMP: 03/27/2016 00:00 (10/13/2016 12:51:ADAM Montoya) Previous Procedures: Ultrasound; NST (10/13/2016 12:51:Crystal Richard RN) Current Procedures: Ultrasound (10/13/2016 12:51:Crystal Richard RN) History of Previous : No (10/13/2016 12:51:Crystal Richard RN) History of Gestational Diabetes: No (10/13/2016 12:51:Crystal Richard RN) History of PIH: No (10/13/2016 12:51:Crystal Richard RN) History of Incompetent Cervix: No (10/13/2016 12:51:Crystal Richard RN) History of Placenta Previa/Abrup: No (10/13/2016 12:51:Crystal Richard RN) History of Macrosomia: No (10/13/2016 12:51:Crystal Richard RN) History of IUGR: No (10/13/2016 12:51:Crystal Richard RN) History of Hemorrhage: No (10/13/2016 12:51:Crystal Richard RN) History of Loss/Stillborn: No (10/13/2016 12:51:Crystal Richard RN) History of : No (10/13/2016 12:51:Crystal Richard RN) History of D (Rh) Sensitization: No (10/13/2016 12:51:Crystal Richard RN) History Recurrent Loss/Stillborn: No (10/13/2016 12:51:Crystal Richard RN) History Depression/PP Depression: No (10/13/2016 12:51:Crystal Richard RN) History of Uterine Anomaly/DEEPA: No (10/13/2016 12:51:Crystal Richard RN) History of Infertility: No (10/13/2016 12:51:Crystal Richard RN) History of ART Treatment: No (10/13/2016 12:51:Crystal Richard RN) History of DEEPA: No (10/13/2016 12:51:Crystal Richard RN) Comments Obstetrical History: G1: 2007, , no complications G2: SAB 2008 G3: EAB 2014 G4: current (10/13/2016 12:51:Crystal Richard RN) MEDICAL HISTORY Med Hx Diabetes: No (10/13/2016 12:51:Crystal Richard RN) Med Hx Hypertension: No (10/13/2016 12:51:Crystal Richard RN) Med Hx Heart Disease: No (10/13/2016 12:51:Crystal Richard RN) Med Hx Autoimmune Disorder: No (10/13/2016 12:51:Crystal Richard RN) Med Hx Kidney Disease/UTI: No (10/13/2016 12:51:Crystal Richard RN) Med Hx Neurologic/Epilepsy: No (10/13/2016 12:51:Crystal Richard RN) Med Hx Psychiatric Disorders: Yes (10/13/2016 12:51:Crystal Richard RN) Med Hx Hepatitis/Liver Disease: No (10/13/2016 12:51:Crystal Richard RN) Med Hx Varicosities/Phlebitis: No (10/13/2016 12:51:Crystal Richard RN) Med Hx Thyroid Dysfunction: No (10/13/2016 12:51:Crystal Richard RN) Med Hx Trauma/Violence: No (10/13/2016 12:51:Crystal Richard RN) Med Hx Blood Transfusion: No (10/13/2016 12:51:Crystal Richard RN) Med Hx Pulmonary (Asthma,TB): No (10/13/2016 12:51:Crystal Richard RN) Med Hx Breast: No (10/13/2016 12:51:Crystal Richard RN) Med Hx DIRECTOR OF STRATEGY & MOBILE Surgery: No (10/13/2016 12:51:Crystal Richard RN) Med Hx Hospitalization/Surgery: Yes (10/13/2016 12:51:Crystal Richard RN) Med Hx Anesthetic Complications: No (10/13/2016 12:51:Crystal Richard RN) Med Hx Abnormal Pap Smear: Yes (10/13/2016 12:51:Crystal Richard RN) Other Medical Diseases: No (10/13/2016 12:51:Crystal Richard RN) Med Hx Significant Family Hx: No (10/13/2016 12:51:Crystal Richard RN) Details of Med/Surg Hx: Pt states she feels like she will have PP depression - pregancy not planned and pt constantly emotional, multiple abnl paps, chronic BV (10/13/2016 12:51:Crystal Richard RN) INFECTIOUS HISTORY Inf Hx Gonorrhea: No (10/13/2016 12:51:Crystal Richard RN) Inf Hx Chlamydia: No (10/13/2016 12:51:Crystal Richard RN) Inf Hx Syphilis: No (10/13/2016 12:51:Crystal Richard RN) Inf Hx HIV/AIDS: No (10/13/2016 12:51:Crystal Richard RN) Inf Hx Human Papilloma Virus: No (10/13/2016 12:51:Crystal Richard RN) Inf Hx Pt/Partner Genital Herpes: No (10/13/2016 12:51:Crystal Richard RN) Inf Hx Tuberculosis/Exposure: No (10/13/2016 12:51:Crystal Richard RN) Inf Hx Hepatitis B,C: No (10/13/2016 12:51:Crystal Richard RN) Inf Hx Rash or Viral Illness: No (10/13/2016 12:51:Crystal Richard RN) GENETIC HISTORY Gen Hx Age >=35 at RUDY: No (10/13/2016 12:51:Crystal Richard RN) Gen Hx Thalassemia: No (10/13/2016 12:51:Crystal Richard RN) Gen Hx Congenital Heart Defect: No (10/13/2016 12:51:Crystal Richard RN) Gen Hx Neural Tube Defect: No (10/13/2016 12:51:Crystal Richard RN) Gen Hx Down's Syndrome: No (10/13/2016 12:51:Crystal Richard RN) Gen Hx Jose-Sachs: No (10/13/2016 12:51:Crystal Richard RN) Gen Hx Froylan: No (10/13/2016 12:51:Crystal Richard RN) Gen Hx Familial Dysautonomia: No (10/13/2016 12:51:Crystal Richard RN) Gen Hx Sickle Cell Disease/Trait: No (10/13/2016 12:51:Crystal Richard RN) Gen Hx Hemophilia/Blood Disorder: No (10/13/2016 12:51:Crystal Richard RN) Gen Hx Muscular Dystrophy: No (10/13/2016 12:51:Crystal Richard RN) Gen Hx Cystic Fibrosis: No (10/13/2016 12:51:Crystal Richard RN) Gen Hx Huntingtons Chorea: No (10/13/2016 12:51:Crystal Richard RN) Gen Hx Mental Retardation/Autism: No (10/13/2016 12:51:Crystal Richard RN) Gen Hx Tested for Fragile X: No (10/13/2016 12:51:Crystal Richard RN) Gen Hx Other Inher/Chromosomal: No (10/13/2016 12:51:Crystal Richard RN) Gen Hx Maternal Metabolic DO: No (10/13/2016 12:51:Crystal Richard RN) Gen Hx Pt Father or FOB Defect: No (10/13/2016 12:51:Crystal Richard RN) Gen Hx Other Genetic History: No (10/13/2016 12:51:Crystal Richard RN) Gen Hx Drugs/Meds since LMP: Yes (10/13/2016 12:51:Crystal Richard RN) Gen Hx Medications: PNV, Flagyl, vaginal cream (10/13/2016 12:51:Crystal Richard RN)
--- NOTE | 2016-12-27 04:45 | L&D Discharge Summary ---
OB Discharge Summary Datetime Report Generated by CPN: 12/27/2016 04:45 DISCHARGE DIAGNOSIS Diagnosis/Symptoms: False Labor Diagnoses/Symptoms Other: not ruptured; false labor Gestation: 39.1 Number of Babies in Womb: 1 Parity: 1 DIET/ACTIVITY/RESTRICTIONS Diet: Regular Activity: Normal Activity TEACHING/INSTRUCTIONS/REFERRALS Instructions Given To: Patient and family member Instructions Understood: Patient Verbalized Understanding; Support Person Verbalized Understanding Referrals: None Educational Materials- Other: kick counts DISCHARGE INFORMATION Discharged AMA: No Discharge Date/Time: 12/26/2016 11:02 Discharged To: Home Discharge Provider Name: Dr. Ochoa Accompanied By: family member Discharge Method: Ambulatory Condition: Stable FOLLOW UP INFORMATION Follow Up With: [facility] Follow Up On: As Scheduled Follow Up Phone Number: [facility] - GENERAL INSTR-CALL PROVIDER IF: Contractions: Contractions or cramps become more frequent than 8 in one hour or 4 in 20 minutes; Regular painful contractions every 5 minutes or less for one hour. Time your contractions from the beginning of one to the beginning of the next Pressure: Pressure in your vagina or lower abdomen that may feel like the baby is pushing down Period Like Cramps: Period-like cramps or low dull backache that may come and go Cramps/Diarrhea: Abdominal cramps that may be accompanied by diarrhea Gush of Fluid/Blood: Gush of fluid or blood from your vagina (it is normal to have spotting after vaginal exam or intercourse) Vaginal Discharge: Change in the type or amount of vaginal discharge Decreased Movement: Your baby is not moving as much as usual- 4 movements in 1 hour after drinking and resting on side Temperature: Temperature greater than 100.0(F) orally
--- NOTE | 2016-12-27 04:45 | L&D General Admission ---
General Admit Datetime Report Generated by CPN: 12/27/2016 04:45 INFORMATION Patient Age: 26 (10/13/2016 12:35:QS system process) EDC: 01/01/2017 00:00 (10/13/2016 12:51:ADAM Montoya) LMP: 03/27/2016 00:00 (10/13/2016 12:51:ADAM Montoya) : 5 (10/13/2016 12:51:ADAM Montoya) Para: 1 (10/13/2016 15:42:Crystal Richard RN) Para: 1 (10/13/2016 12:51:ADAM Montoya) Term: 1 (10/13/2016 12:51:Crystal Richard RN) : 0 (10/13/2016 12:51:Crystal Richard RN) Livin (10/13/2016 12:51:Crystal Richard RN) Cesareans: 0 (10/13/2016 12:51:Marivel Nance RN) Baby, Number in Womb: 1 (10/13/2016 15:42:Crystal Richard RN) CARE Primary Fire Apparatus Sprinkler Inspector: [facility] (10/13/2016 12:51:Crystal Richard RN) Fire Apparatus Sprinkler Inspector Other: [facility] (10/13/2016 12:51:Crystal Richard RN) Month of 1st Visit: June (10/13/2016 12:51:Crystal Richard RN) Prepregnancy Weight (lb): 122 (10/13/2016 12:51:Crystal Richard RN) Prepregnancy Weight (kg): 55.5 (10/13/2016 12:51:QS system process) Height (in): 66 (12/26/2016 10:09:QS system process) Height (in): 66 (10/13/2016 12:55:QS system process) ALLERGIES Medication Allergy: No (10/13/2016 12:51:Crystal Richard RN) Medication Allergies: No Known Allergies (12/26/2016) (12/26/2016 10:08:QS system process) Medication Allergies: No Known Allergies (07/07/2015) (10/13/2016 12:35:QS system process) Latex Allergy: No Latex Allergies (10/13/2016 12:51:Crystal Richard RN) Food Allergies: denies (10/13/2016 12:51:Marivel Nance RN) Environmental Allergies: denies (10/13/2016 12:51:Marivel Nance RN) COMMUNICATION Primary Language: Romanian (10/13/2016 12:51:Crystal Richard RN) Medical Tx Preferred Language: Romanian (10/13/2016 12:51:Crystal Richard RN) DEMOGRAPHICS Address: [address] [place] [phone] (10/13/2016 12:35:QS system process) Zipcode: [phone] (10/13/2016 12:35:QS system process) Home (10/13/2016 12:35:QS system process) SSN: [id number] (10/13/2016 12:35:QS system process) Next of Kin Name: AYAN JIANG (10/13/2016 12:35:QS system process) Next of Kin (10/13/2016 12:35:QS system process) Next of Kin Relationship: MO (10/13/2016 12:35:QS system process) Date of : 1990 (10/13/2016 12:35:QS system process) Marital Status: Single (10/13/2016 12:35:QS system process) Sex: Female (10/13/2016 12:35:QS system process) Race: (10/13/2016 12:35:QS system process) Ethnicity: Non- or (10/13/2016 12:35:QS system process) Christianity: None (10/13/2016 12:35:QS system process) DRUG AND ALCOHOL USE Alcohol: No (10/13/2016 12:51:Crystal Richard RN) Cigarettes: Former Smoker. [id number] (10/13/2016 12:51:Crystal Richard RN) Marijuana: Yes (10/13/2016 12:51:Crystal Richard RN) Marijuana Comments: early in (10/13/2016 12:51:Crystal Richard RN) Cocaine: No (10/13/2016 12:51:Crystal Richard RN) Other Illicit Drugs: No (10/13/2016 12:51:Crystal Richard RN) VACCINE HISTORY Influenza Vaccine: No (10/13/2016 12:51:Crystal Richard RN) Pneumococcal Vaccine: No (10/13/2016 12:51:Crystal Richard RN) Tetanus Vaccine: Uncertain (10/13/2016 12:51:Crystal Richard RN) Tdap Vaccine: Uncertain (10/13/2016 12:51:Crystal Richard RN) Hepatitis B Vaccine: Uncertain (10/13/2016 12:51:Crystal Richard RN) Feeding Preference: Both (10/13/2016 12:51:Crystal Richard RN) Benefit of Breast Feed Discussed: Yes (10/13/2016 12:51:Crystal Richard RN) Circumcision: N/A (10/13/2016 12:51:Crystal Richard RN) Classes Attended: No (10/13/2016 12:51:Crystal Richard RN) Tubal Ligation: Yes (10/13/2016 12:51:Crystal Richard RN) Tubal Authorization Signed: N/A (10/13/2016 12:51:Crystal Richard RN) Consent: N/A (10/13/2016 12:51:Crystal Richard RN) Consent Signed: N/A (10/13/2016 12:51:Crystal Richard RN) Pain Management Plans: Epidural (10/13/2016 12:51:Crystal Richard RN) Plans for Labor and Delivery: None (10/13/2016 12:51:Crystal Richard RN) Support Person: Ayan Jiang (10/13/2016 12:51:Crystal Richard RN) Support Person Relationship: Mother (10/13/2016 12:51:Crystal Richard RN) Cultural/Spritual Practice: No (10/13/2016 12:51:Crystal Richard RN) Spir/Cult Dietary Needs: No (10/13/2016 12:51:Crystal Richard RN) LIVING SITUATION/DISCHARGE PLAN Living Arrangements: House (10/13/2016 12:51:Crystal Richard RN) Adequate Access to:: Electric; Heat; Refrigeration; Plumbing/Running water; Phone; Transportation (10/13/2016 12:51:Crystal Richard RN) WIC Program: Yes (10/13/2016 12:51:Crystal Richard RN) Discharge Towel Stretcher Person: Mother (10/13/2016 12:51:Crystal Richard RN) Person to Help after Discharge: Mother (10/13/2016 12:51:Crystal Richard RN) Currently Using Commun Resources: Yes (10/13/2016 12:51:Crystal Richard RN) Specify Current Resource Used: Food stamps (10/13/2016 12:51:Crystal Richard RN) Outside Agency/Pocket Creaser: No (10/13/2016 12:51:Crystal Richard RN) Car Seat for Discharge: Yes (10/13/2016 12:51:Crystal Richard RN) Adoption Requested: No (10/13/2016 12:51:Crystal Richard RN) Pt Contact w/infant Post : N/A (10/13/2016 12:51:Crystal Richard RN) LABS Blood Type: O Positive (10/13/2016 12:51:Crystal Richard RN) Antibody Screen: negative (10/13/2016 12:51:Crystal Richard RN) Hemoglobin: 13.1 (10/13/2016 14:13:QS system process) Hematocrit: 37.4 (10/13/2016 14:13:QS system process) MCV: 91 (10/13/2016 14:13:QS system process) Group Beta Strep: Negative (10/13/2016 12:51:Marivel Nance RN) Group Beta Strep: negative (10/13/2016 12:51:Crystal Richard RN) Gonorrhea: Negative (10/13/2016 12:51:Marivel Nance RN) Chlamydia: Negative (10/13/2016 12:51:Crystal Richard RN) RPR/VDRL: Nonreactive (10/13/2016 12:51:Crystal Richard RN) HIV Exposure Test: Negative (10/13/2016 12:51:Crystal Richard RN) Hepatitis B: Negative (10/13/2016 12:51:Crystal Richard RN) Rubella: Immune (10/13/2016 12:51:Crystal Richard RN) Varicella: Non Susceptible (10/13/2016 12:51:Crystal Richard RN) OB/PREVIOUS HISTORY LMP: 03/27/2016 00:00 (10/13/2016 12:51:ADAM Montoya) Previous Procedures: Ultrasound; NST (10/13/2016 12:51:Crystal Richard RN) Current Procedures: Ultrasound (10/13/2016 12:51:Crsytal Richard RN) History of Previous : No (10/13/2016 12:51:Crystal Richard RN) History of Gestational Diabetes: No (10/13/2016 12:51:Crystal Richard RN) History of PIH: No (10/13/2016 12:51:Crystal Richard RN) History of Incompetent Cervix: No (10/13/2016 12:51:Crystal Richard RN) History of Placenta Previa/Abrup: No (10/13/2016 12:51:Crystal Richard RN) History of Macrosomia: No (10/13/2016 12:51:Crystal Richard RN) History of IUGR: No (10/13/2016 12:51:Crystal Richard RN) History of Hemorrhage: No (10/13/2016 12:51:Crystal Richard RN) History of Loss/Stillborn: No (10/13/2016 12:51:Crystal Richard RN) History of : No (10/13/2016 12:51:Crystal Richard RN) History of D (Rh) Sensitization: No (10/13/2016 12:51:Crystal Richard RN) History Recurrent Loss/Stillborn: No (10/13/2016 12:51:Crystal Richard RN) History Depression/PP Depression: No (10/13/2016 12:51:Crystal Richard RN) History of Uterine Anomaly/DEEPA: No (10/13/2016 12:51:Crystal Richard RN) History of Infertility: No (10/13/2016 12:51:Crystal Richard RN) History of ART Treatment: No (10/13/2016 12:51:Crystal Richard RN) History of DEEPA: No (10/13/2016 12:51:Crystal Richard RN) Comments Obstetrical History: G1: 2007, , no complications G2: SAB 2008 G3: EAB 2014 G4: current (10/13/2016 12:51:Crystal Richard RN) MEDICAL HISTORY Med Hx Diabetes: No (10/13/2016 12:51:Crystal Richard RN) Med Hx Hypertension: No (10/13/2016 12:51:Crystal Richard RN) Med Hx Heart Disease: No (10/13/2016 12:51:Crystal Richard RN) Med Hx Autoimmune Disorder: No (10/13/2016 12:51:Crystal Richard RN) Med Hx Kidney Disease/UTI: No (10/13/2016 12:51:Crystal Richard RN) Med Hx Neurologic/Epilepsy: No (10/13/2016 12:51:Crystal Richard RN) Med Hx Psychiatric Disorders: Yes (10/13/2016 12:51:Crystal Richard RN) Med Hx Hepatitis/Liver Disease: No (10/13/2016 12:51:Crystal Richard RN) Med Hx Varicosities/Phlebitis: No (10/13/2016 12:51:Crystal Richard RN) Med Hx Thyroid Dysfunction: No (10/13/2016 12:51:Crystal Richard RN) Med Hx Trauma/Violence: No (10/13/2016 12:51:Crystal Richard RN) Med Hx Blood Transfusion: No (10/13/2016 12:51:Crystal Richard RN) Med Hx Pulmonary (Asthma,TB): No (10/13/2016 12:51:Crystal Richard RN) Med Hx Breast: No (10/13/2016 12:51:Crystal Richard RN) Med Hx CONSTRUCTION CARPENTER Surgery: No (10/13/2016 12:51:Crystal Richard RN) Med Hx Hospitalization/Surgery: Yes (10/13/2016 12:51:Crystal Richard RN) Med Hx Anesthetic Complications: No (10/13/2016 12:51:Crystal Richard RN) Med Hx Abnormal Pap Smear: Yes (10/13/2016 12:51:Crystal Richard RN) Other Medical Diseases: No (10/13/2016 12:51:Crystal Richard RN) Med Hx Significant Family Hx: No (10/13/2016 12:51:Crystal Richard RN) Details of Med/Surg Hx: Pt states she feels like she will have PP depression - pregancy not planned and pt constantly emotional, multiple abnl paps, chronic BV (10/13/2016 12:51:Crystal Richard RN) INFECTIOUS HISTORY Inf Hx Gonorrhea: No (10/13/2016 12:51:Crystal Richard RN) Inf Hx Chlamydia: No (10/13/2016 12:51:Crystal Richard RN) Inf Hx Syphilis: No (10/13/2016 12:51:Crystal Richard RN) Inf Hx HIV/AIDS: No (10/13/2016 12:51:Crystal Richard RN) Inf Hx Human Papilloma Virus: No (10/13/2016 12:51:Crystal Richard RN) Inf Hx Pt/Partner Genital Herpes: No (10/13/2016 12:51:Crystal Richard RN) Inf Hx Tuberculosis/Exposure: No (10/13/2016 12:51:Crystal Richard RN) Inf Hx Hepatitis B,C: No (10/13/2016 12:51:Crsytal Richard RN) Inf Hx Rash or Viral Illness: No (10/13/2016 12:51:Crystal Richard RN) GENETIC HISTORY Gen Hx Age >=35 at RUDY: No (10/13/2016 12:51:Crystal Richard RN) Gen Hx Thalassemia: No (10/13/2016 12:51:Crystal Richard RN) Gen Hx Congenital Heart Defect: No (10/13/2016 12:51:Crystal Richard RN) Gen Hx Neural Tube Defect: No (10/13/2016 12:51:Crystal Richard RN) Gen Hx Down's Syndrome: No (10/13/2016 12:51:Crystal Richard RN) Gen Hx Jose-Sachs: No (10/13/2016 12:51:Crystal Richard RN) Gen Hx Froylan: No (10/13/2016 12:51:Crystal Richard RN) Gen Hx Familial Dysautonomia: No (10/13/2016 12:51:Crystal Richard RN) Gen Hx Sickle Cell Disease/Trait: No (10/13/2016 12:51:Crystal Richard RN) Gen Hx Hemophilia/Blood Disorder: No (10/13/2016 12:51:Crystal Richard RN) Gen Hx Muscular Dystrophy: No (10/13/2016 12:51:Crystal Richard RN) Gen Hx Cystic Fibrosis: No (10/13/2016 12:51:Crystal Richard RN) Gen Hx Huntingtons Chorea: No (10/13/2016 12:51:Crystal Richard RN) Gen Hx Mental Retardation/Autism: No (10/13/2016 12:51:Crystal Richard RN) Gen Hx Tested for Fragile X: No (10/13/2016 12:51:Crystal Richard RN) Gen Hx Other Inher/Chromosomal: No (10/13/2016 12:51:Crystal Richard RN) Gen Hx Maternal Metabolic DO: No (10/13/2016 12:51:Crystal Richard RN) Gen Hx Pt Father or FOB Defect: No (10/13/2016 12:51:Crystal Richard RN) Gen Hx Other Genetic History: No (10/13/2016 12:51:Crystal Richard RN) Gen Hx Drugs/Meds since LMP: Yes (10/13/2016 12:51:Crystal Richard RN) Gen Hx Medications: PNV, Flagyl, vaginal cream (10/13/2016 12:51:Crystal Richard RN)
--- NOTE | 2016-12-27 04:45 | Antepartum Discharge Summary ---
Antepartum DC Datetime Report Generated by CPN: 12/27/2016 04:45 DIET/ACTIVITY/RESTRICTIONS Diet: Regular (12/26/2016 11:02:Marivel Nance RN) Activity: Normal Activity (12/26/2016 11:02:Marivel aNnce, RN) TEACHING/INSTRUCTIONS/REFERRALS Instructions Given To: Patient and family member (12/26/2016 11:02:Marivel Nance RN) Instructions Understood: Patient Verbalized Understanding; Support Person Verbalized Understanding (12/26/2016 11:02:Marivel Nance RN) Referrals: None (12/26/2016 11:02:Marivel Nance RN) Educational Materials- Other: kick counts (12/26/2016 11:02:Marivel Nance RN) DISCHARGE INFORMATION Discharged AMA: No (12/26/2016 11:02:Marivel Nance RN) Discharge Date/Time: 12/26/2016 11:02 (12/26/2016 11:02:Marivel Nance RN) Discharged To: Home (12/26/2016 11:02:Marivel Nance RN) Discharge Provider Name: Dr. Ochoa (12/26/2016 11:02:Marivel Nance RN) Accompanied By: family member (12/26/2016 11:02:Marivel Nance RN) Discharge Method: Ambulatory (12/26/2016 11:02:Marivel Nance RN) Condition: Stable (12/26/2016 11:02:Marivel Nnace RN) FOLLOW UP INFORMATION Follow Up With: [facility] (12/26/2016 11:02:Marivel Nance RN) Follow Up On: As Scheduled (12/26/2016 11:02:Marivel Nance RN) Follow Up Phone Number: [facility] - (12/26/2016 11:02:Marivel Nance RN) GENERAL INSTR-CALL PROVIDER IF: Contractions: Contractions or cramps become more frequent than 8 in one hour or 4 in 20 minutes; Regular painful contractions every 5 minutes or less for one hour. Time your contractions from the beginning of one to the beginning of the next (12/26/2016 11:02:Marivel Nance RN) Pressure: Pressure in your vagina or lower abdomen that may feel like the baby is pushing down (12/26/2016 11:02:Marivel Nance RN) Period Like Cramps: Period-like cramps or low dull backache that may come and go (12/26/2016 11:02:Marivel Nnace RN) Cramps/Diarrhea: Abdominal cramps that may be accompanied by diarrhea (12/26/2016 11:02:Marivel Nance RN) Gush of Fluid/Blood: Gush of fluid or blood from your vagina (it is normal to have spotting after vaginal exam or intercourse) (12/26/2016 11:02:Marivel Nance RN) Vaginal Discharge: Change in the type or amount of vaginal discharge (12/26/2016 11:02:Marivel Nance RN) Decreased Movement: Your baby is not moving as much as usual- 4 movements in 1 hour after drinking and resting on side (12/26/2016 11:02:Marivel Nance RN) Temperature: Temperature greater than 100.0(F) orally (12/26/2016 11:02:Marivel Nance RN) Hypertension Signs/Symptoms: Severe headache which is not relieved 30 minutes after taking Tylenol(Acetaminophen); Blurry vision or spots before your eyes; Severe heartburn or pain on the upper right side of your abdomen that is not relieved by an antacid; Increased swelling in your face, hands or feet (12/26/2016 11:02:Marivel Nance RN) Urinary Output: Decreased urinary output or dark colored urine (12/26/2016 11:02:Marivel Nance RN)
--- NOTE | 2016-12-27 04:45 | L&D Admission Assessment ---
LD ADM ASMT Datetime Report Generated by CPN: 12/27/2016 04:45 PATIENT ASSESSMENT Assessment Type: Triage (12/26/2016 10:27:Marivel Goyo, RN) WEIGHT Weight (lb): 165 (12/26/2016 10:09:QS system process) Weight (kg): 75.0 (12/26/2016 10:09:QS system process) Total Wt Gain (lb): 43 (12/26/2016 10:09:QS system process) Wt Gain (kg): 19.5 (12/26/2016 10:09:QS system process) BMI: 26.6 (12/26/2016 10:09:QS system process) PAIN Pain Scale: 1 (12/26/2016 10:27:Marivel Nance RN) Pain Presence: Intermittent (12/26/2016 10:27:Marivel Nance RN) Pain Type: Pressure (12/26/2016 10:27:Marivel Nance RN) Pain Location: Abdomen (12/26/2016 10:27:Marivel Nance RN) Pain Goal: 1 (12/26/2016 10:27:Marivel Nance RN) Pain Related to Contraction: Unsure (12/26/2016 10:27:Marivel Nance RN) CONTRACTIONS Frequency (min): rare (12/26/2016 10:30:Marivel Nance RN) Quality: Mild (12/26/2016 10:58:Marivel Nance RN) Quality: Mild (12/26/2016 10:30:Marivel Nance RN) Quality: Mild (12/26/2016 10:27:Marivel Nance RN) Resting Tone [place]: Relaxed (12/26/2016 10:58:Marivel Nance RN) Resting Tone [place]: Relaxed (12/26/2016 10:30:Marivel Nance RN) Resting Tone [place]: Relaxed (12/26/2016 10:27:Marivel Nance RN) Contraction Comments: uterine irritability. patient denies contractions (12/26/2016 10:58:Marivel Nance RN) Contraction Comments: patient denies feeling contractions at this time and none noted on monitor or by palpation. Patient report lower pelvic pressure. (12/26/2016 10:30:Marivel Nance RN) VAGINAL EXAM Dilatation (cm): 1.0 (12/26/2016 10:27:Marivel Nance RN) Effacement (%): 70 (12/26/2016 10:27:Marivel Nance RN) Station: -1 (12/26/2016 10:27:Marivel Nance RN) NEURO Level of Consciousness: Fully Conscious (12/26/2016 10:27:Marivel Nance RN) DTR's/Clonus: DTRs 2+; No Clonus (12/26/2016 10:27:Marivel Nance RN) Headache: Denies (12/26/2016 10:27:Marivel Nance RN) Dizziness: No (12/26/2016 10:27:Marivel Nance RN) Blurred Vision: No (12/26/2016 10:27:Marivel Nance RN) Extremity Numbness/Tingling : None (12/26/2016 10:27:Marivel Nance RN) Extremity Movement: Full Range of Motion (12/26/2016 10:27:Marivel Nance RN) CARDIOVASCULAR Heart Rhythm: Regular (12/26/2016 10:27:Marivel Nance RN) Nailbeds: [place] (12/26/2016 10:27:Marivel Nance RN) Capillary Refill: Less than 3 Seconds (12/26/2016 10:27:Marivel Nance RN) Lower Extremities Edema: None (12/26/2016 10:27:Marivel Nance RN) Lower Extremities Edema Degree: None (12/26/2016 10:27:Marivel Nance RN) Upper Extremities Edema: None (12/26/2016 10:27:Marivel Nance RN) Upper Extremities Edema Degree: None (12/26/2016 10:27:Marivel Nance RN) Facial Edema: None (12/26/2016 10:27:Marivel Nance RN) Rufino's Sign Left Leg: Negative (12/26/2016 10:27:Marivel Nance RN) Rufino's Sign Right Leg: Negative (12/26/2016 10:27:Marivel Nance RN) DVT RISK ASSESSMENT DVT Risk Age: Age less than 41 years (12/26/2016 10:27:Marivel Nance RN) DVT Risk BMI: BMI<31 (12/26/2016 10::Marivel Nance RN) DVT Risk Surgery: None Applicable (12/26/2016 10::Marivel Nance RN) DVT Risk Other: Women Only- or (<1 month) (12/26/2016 10:27:Marivel Nance RN) DVT Risk Total: 1 (12/26/2016 10::QS system process) DVT Risk Text: Low Risk (<10%) No specific measures, early ambulation (12/26/2016 10::QS system process) RESPIRATORY Respiratory Effort: Unlabored; Regular Rhythm (12/26/2016 10::Marivel Nance RN) Breath Sounds, Left: Clear and Equal (12/26/2016 10::Marivel Nance RN) Breath Sounds, Right: Clear and Equal (12/26/2016 10:27:Marivel Nance RN) Cough Productivity: None (12/26/2016 10:27:Marivel Nance RN) GASTROINTESTINAL Nausea/Vomiting: Present (12/26/2016 10:27:Marivel Nance RN) Bowel Sounds: Normoactive; All Quadrants (12/26/2016 10:27:Marivel Nance RN) RUQ Epigastric Pain: Denies (12/26/2016 10:27:Marivel Nance RN) Bowel Patterns: Soft, Formed Stool (12/26/2016 10:27:Marivel Nance RN) Hemorrhoids: None (12/26/2016 10:27:Marivel Nance RN) Diet Type: Regular diet (12/26/2016 10:27:Marivel Nance RN) Last Meal: 12/26/2016 09:45 (12/26/2016 10:27:Marivel Nance RN) GENITOURINARY Bladder: Nondistended (12/26/2016 10:27:Marivel Nance RN) Frequency of Urination: No (12/26/2016 10:27:Marivel Nance RN) Urination Burning: No (12/26/2016 10:27:Marivel Nance RN) CVA Tenderness: No (12/26/2016 10:27:Marivel Nance RN) Vaginal Bleeding: None (12/26/2016 10:27:Marivel Nance RN) Vaginal Discharge Amount: None (12/26/2016 10:27:Marivel Nance RN) Vaginal Discharge Color: N/A (12/26/2016 10:27:Marivel Nance RN) Vaginal Discharge Character: None (12/26/2016 10:27:Marivel Nance RN) INTEGUMENTARY Skin Color: Normal for Race (12/26/2016 10:27:Marivel Nance RN) Skin Temperature: Warm (12/26/2016 10:27:Marivel Nance RN) Skin Moisture: Dry (12/26/2016 10:27:Marivel Nance RN) RONALDO SKIN ASSESSMENT Ronaldo Scale Sensory Perception: No Impairment- Responds to verbal commands. Has no sensory deficit which would limit ability to feel or voice pain or discomfort (12/26/2016 10:27:Marivel Nance RN) Ronaldo Scale Moisture: Rarely Moist- Skin is usually dry. Linen only requires changing at routine intervals (12/26/2016 10:27:Marivel Nance RN) Ronaldo Scale Activity: Walks Frequently- Walks outside the room at least twice a day and inside room at least every 2 hours during the day. (12/26/2016 10:27:Marivel Nance RN) Ronaldo Scale Mobility: No Limitations- Makes major and frequent changes in position without assistance (12/26/2016 10:27:Marivel Nance RN) Ronaldo Scale Nutrition: Excellent- Eats most of every meal. Never refuses a meal. Usually eats a total of 4 or more servings of meat and dairy products. Occasionally eats between meals. Does not require supplementation (12/26/2016 10:27:Marivel Nance RN) Ronaldo Scale Friction and Shear: No Apparent Problem- Moves in bed and in chair independently and has sufficient muscle strength to lift up completely during move. Maintains good position in bed or chair at all times (12/26/2016 10:27:Marivel Nance RN) Ronaldo Scale Total: 23 (12/26/2016 10:27:QS system process) Ronaldo Scale Risk: No Risk of Pressure Ulcer Noted at this Time (12/26/2016 10:27:QS system process) SUPPORT Family Support: Family supportive (12/26/2016 10:27:Marivel Nance RN) Emotional State: Calm/Relaxed (12/26/2016 10:27:Marivel Nance RN) SAFETY Call [place] Within Reach: Yes (12/26/2016 10:27:Marivel Nance RN) Side Rails Up: Yes (12/26/2016 10:27:Marivel Nance RN) Bed Wheels Locked: Yes (12/26/2016 10:27:Marivel Nance RN) Arm Bands Present: Yes (12/26/2016 10:27:Marivel Nance RN) Isolation: [place] (12/26/2016 10:27:Marivel Nance RN) FALL SCREEN Fall Risk History of Falling: (0) No (12/26/2016 10:27:Marivel Nance RN) Fall Risk Secondary Diagnosis: (0) No (12/26/2016 10:27:Marivel Nance RN) Fall Risk Ambulatory Aid: (0) None/Bedrest/Wheelchair/Nurse Assist (12/26/2016 10:27:Marivel Nance RN) Fall Risk IV Therapy: (0) No (12/26/2016 10:27:Marivel Nance RN) Fall Risk Gait: (0) Normal/Bedrest/Immobile (12/26/2016 10:27:Marivel Nance RN) Fall Risk Mental Status: (0) Oriented to Own Ability (12/26/2016 10:27:Marivel Nance RN) Fall Risk Score: 0 (12/26/2016 10:27:QS system process) Fall Risk Score Definition: No Risk: No action required (12/26/2016 10:27:QS system process) RECENT TRAVEL/INFECTIOUS DISEASE Recent Exp Communicable Disease: No (12/26/2016 10:27:Marivel Nance RN) Cough or Fever: No (12/26/2016 10:27:Marivel Nance RN) Foreign Travel Past 10 Days: No (12/26/2016 10:27:Marivel Nance RN) Open Wounds or Sores: No (12/26/2016 10:27:Marivel Nance RN) Prior Antibiotic Resistance Tx: No (12/26/2016 10:27:Marivel Nance RN) Cultures Obtained: Not Applicable (12/26/2016 10:27:Marivel Nance RN) Isolation Initiated: No (12/26/2016 10:27:Marivel Nance RN) Pt/Family Education: Not Applicable (12/26/2016 10:27:Marivel Nance RN) BABY A FHR Baseline Rate (bpm) Baby A: 140 (12/26/2016 10:58:Marivel Nance RN) FHR Baseline Rate (bpm) Baby A: 140 (12/26/2016 10:30:Marivel Nance RN) FHR Baseline Rate (bpm) Baby A: 140 (12/26/2016 10:27:Marivel Nance RN) Variability Baby A: Moderate 6-25 bpm (12/26/2016 10:58:Marivel Nance RN) Variability Baby A: Moderate 6-25 bpm (12/26/2016 10:30:Marivel Nance RN) Variability Baby A: Moderate 6-25 bpm (12/26/2016 10:27:Marivel Nance RN) Accelerations Baby A: 15X15 (12/26/2016 10:58:Marivel Nance RN) Accelerations Baby A: 15X15 (12/26/2016 10:30:Marivel Nance RN) Accelerations Baby A: 15X15 (12/26/2016 10:27:Marivel Nance RN) Decelerations Baby A: None (12/26/2016 10:58:Marivel Nance RN) Decelerations Baby A: None (12/26/2016 10:30:Marivel Nance RN) Decelerations Baby A: None (12/26/2016 10:27:Marivel Nance RN)
--- NOTE | 2016-12-27 04:45 | L&D Current Admission ---
Current Admit Datetime Report Generated by CPN: 12/27/2016 04:45 ADMISSION INFORMATION Chief Complaint: Contractions; Suspected Rupture of Membranes (12/26/2016 10:27:Marivel Nance RN) Chief Complaint: Uterine Cramping (10/13/2016 13:15:Crystal Richard RN)
--- NOTE | 2016-12-27 10:45 | L&D General Admission ---
General Admit Datetime Report Generated by CPN: 12/27/2016 10:45 INFORMATION Patient Age: 26 (10/13/2016 12:35:QS system process) EDC: 01/01/2017 00:00 (10/13/2016 12:51:ADAM Montoya) LMP: 03/27/2016 00:00 (10/13/2016 12:51:ADAM Montoya) : 5 (10/13/2016 12:51:ADAM Montoya) Para: 1 (10/13/2016 15:42:Crystal Richard RN) Para: 1 (10/13/2016 12:51:ADAM Montoya) Term: 1 (10/13/2016 12:51:Crystal Richard RN) : 0 (10/13/2016 12:51:Crystal Richard RN) Livin (10/13/2016 12:51:Crystal Richard RN) Cesareans: 0 (10/13/2016 12:51:Marivel Nance RN) Baby, Number in Womb: 1 (10/13/2016 15:42:Crystal Richard RN) CARE Primary Cow Puncher: [facility] (10/13/2016 12:51:Crystal Richard RN) Cow Puncher Other: [facility] (10/13/2016 12:51:Crystal Richard RN) Month of 1st Visit: June (10/13/2016 12:51:Crystal Richard RN) Prepregnancy Weight (lb): 122 (10/13/2016 12:51:Crystal Richard RN) Prepregnancy Weight (kg): 55.5 (10/13/2016 12:51:QS system process) Height (in): 66 (12/26/2016 10:09:QS system process) Height (in): 66 (10/13/2016 12:55:QS system process) ALLERGIES Medication Allergy: No (10/13/2016 12:51:Crystal Richard RN) Medication Allergies: No Known Allergies (12/26/2016) (12/26/2016 10:08:QS system process) Medication Allergies: No Known Allergies (07/07/2015) (10/13/2016 12:35:QS system process) Latex Allergy: No Latex Allergies (10/13/2016 12:51:Crystal Richard RN) Food Allergies: denies (10/13/2016 12:51:Marivel Nance RN) Environmental Allergies: denies (10/13/2016 12:51:Marivel Nance RN) COMMUNICATION Primary Language: Malawian (10/13/2016 12:51:Crystal Richard RN) Medical Tx Preferred Language: Malawian (10/13/2016 12:51:Crystal Richard RN) DEMOGRAPHICS Address: [address] [place] [id number] (10/13/2016 12:35:QS system process) Zipcode: [phone] (10/13/2016 12:35:QS system process) Home (10/13/2016 12:35:QS system process) SSN: [id number] (10/13/2016 12:35:QS system process) Next of Kin Name: AYAN JIANG (10/13/2016 12:35:QS system process) Next of Kin (10/13/2016 12:35:QS system process) Next of Kin Relationship: MO (10/13/2016 12:35:QS system process) Date of : 1990 (10/13/2016 12:35:QS system process) Marital Status: Single (10/13/2016 12:35:QS system process) Sex: Female (10/13/2016 12:35:QS system process) Race: (10/13/2016 12:35:QS system process) Ethnicity: Non- or (10/13/2016 12:35:QS system process) Quaker: None (10/13/2016 12:35:QS system process) DRUG AND ALCOHOL USE Alcohol: No (10/13/2016 12:51:Crystal Richard RN) Cigarettes: Former Smoker. [id number] (10/13/2016 12:51:Crystal Richard RN) Marijuana: Yes (10/13/2016 12:51:Crystal Richard RN) Marijuana Comments: early in (10/13/2016 12:51:Crystal Richard RN) Cocaine: No (10/13/2016 12:51:Crystal Richard RN) Other Illicit Drugs: No (10/13/2016 12:51:Crystal Richard RN) VACCINE HISTORY Influenza Vaccine: No (10/13/2016 12:51:Crystal Richard RN) Pneumococcal Vaccine: No (10/13/2016 12:51:Crystal Richard RN) Tetanus Vaccine: Uncertain (10/13/2016 12:51:Crystal Richard RN) Tdap Vaccine: Uncertain (10/13/2016 12:51:Crystal Richard RN) Hepatitis B Vaccine: Uncertain (10/13/2016 12:51:Crystal Richard RN) Feeding Preference: Both (10/13/2016 12:51:Crystal Richard RN) Benefit of Breast Feed Discussed: Yes (10/13/2016 12:51:Crystal Richard RN) Circumcision: N/A (10/13/2016 12:51:Crystal Richard RN) Classes Attended: No (10/13/2016 12:51:Crystal Richard RN) Tubal Ligation: Yes (10/13/2016 12:51:Crystal Richard RN) Tubal Authorization Signed: N/A (10/13/2016 12:51:Crystal Richard RN) Consent: N/A (10/13/2016 12:51:Crystal Richard RN) Consent Signed: N/A (10/13/2016 12:51:Crystal Richard RN) Pain Management Plans: Epidural (10/13/2016 12:51:Crystal Richard RN) Plans for Labor and Delivery: None (10/13/2016 12:51:Crystal Richard RN) Support Person: Ayan Jiang (10/13/2016 12:51:Crystal Richard RN) Support Person Relationship: Mother (10/13/2016 12:51:Crystal Richard RN) Cultural/Spritual Practice: No (10/13/2016 12:51:Crystal Richard RN) Spir/Cult Dietary Needs: No (10/13/2016 12:51:Crystal Richard RN) LIVING SITUATION/DISCHARGE PLAN Living Arrangements: House (10/13/2016 12:51:Crystal Richard RN) Adequate Access to:: Electric; Heat; Refrigeration; Plumbing/Running water; Phone; Transportation (10/13/2016 12:51:Crystal Richard RN) WIC Program: Yes (10/13/2016 12:51:Crystal Richard RN) Discharge Truck Mechanic Person: Mother (10/13/2016 12:51:Crystal Richard RN) Person to Help after Discharge: Mother (10/13/2016 12:51:Crystal Richard RN) Currently Using Commun Resources: Yes (10/13/2016 12:51:Crystal Richard RN) Specify Current Resource Used: Food stamps (10/13/2016 12:51:Crystal Richard RN) Outside Agency/Distribution Dispatcher: No (10/13/2016 12:51:Crystal Richard RN) Car Seat for Discharge: Yes (10/13/2016 12:51:Crystal Richard RN) Adoption Requested: No (10/13/2016 12:51:Crystal Richard RN) Pt Contact w/infant Post : N/A (10/13/2016 12:51:Crystal Richard RN) LABS Blood Type: O Positive (10/13/2016 12:51:Crystal Richard RN) Antibody Screen: negative (10/13/2016 12:51:Crystal Richard RN) Hemoglobin: 13.1 (10/13/2016 14:13:QS system process) Hematocrit: 37.4 (10/13/2016 14:13:QS system process) MCV: 91 (10/13/2016 14:13:QS system process) Group Beta Strep: Negative (10/13/2016 12:51:Marivel Nance RN) Group Beta Strep: negative (10/13/2016 12:51:Crystal Richard RN) Gonorrhea: Negative (10/13/2016 12:51:Marivel Nance RN) Chlamydia: Negative (10/13/2016 12:51:Crystal Richard RN) RPR/VDRL: Nonreactive (10/13/2016 12:51:Crystal Richard RN) HIV Exposure Test: Negative (10/13/2016 12:51:Crystal Richard RN) Hepatitis B: Negative (10/13/2016 12:51:Crystal Richard RN) Rubella: Immune (10/13/2016 12:51:Crystal Richard RN) Varicella: Non Susceptible (10/13/2016 12:51:Crystal Richard RN) OB/PREVIOUS HISTORY LMP: 03/27/2016 00:00 (10/13/2016 12:51:ADAM Montoya) Previous Procedures: Ultrasound; NST (10/13/2016 12:51:Crystal Richard RN) Current Procedures: Ultrasound (10/13/2016 12:51:Crystal Richard RN) History of Previous : No (10/13/2016 12:51:Crystal Richard RN) History of Gestational Diabetes: No (10/13/2016 12:51:Crystal Richard RN) History of PIH: No (10/13/2016 12:51:Crystal Richard RN) History of Incompetent Cervix: No (10/13/2016 12:51:Crystal Richard RN) History of Placenta Previa/Abrup: No (10/13/2016 12:51:Crystal Richard RN) History of Macrosomia: No (10/13/2016 12:51:Crystal Richard RN) History of IUGR: No (10/13/2016 12:51:Crystal Richard RN) History of Hemorrhage: No (10/13/2016 12:51:Crystal Richard RN) History of Loss/Stillborn: No (10/13/2016 12:51:Crystal Richard RN) History of : No (10/13/2016 12:51:Crystal Richard RN) History of D (Rh) Sensitization: No (10/13/2016 12:51:Crystal Richard RN) History Recurrent Loss/Stillborn: No (10/13/2016 12:51:Crystal Richard RN) History Depression/PP Depression: No (10/13/2016 12:51:Crystal Richard RN) History of Uterine Anomaly/DEEPA: No (10/13/2016 12:51:Crystal Richard RN) History of Infertility: No (10/13/2016 12:51:Crystal Richard RN) History of ART Treatment: No (10/13/2016 12:51:Crystal Richard RN) History of DEEPA: No (10/13/2016 12:51:Crystal Richard RN) Comments Obstetrical History: G1: 2007, , no complications G2: SAB 2008 G3: EAB 2014 G4: current (10/13/2016 12:51:Crystal Richard RN) MEDICAL HISTORY Med Hx Diabetes: No (10/13/2016 12:51:Crystal Richard RN) Med Hx Hypertension: No (10/13/2016 12:51:Crystal Richard RN) Med Hx Heart Disease: No (10/13/2016 12:51:Crystal Richard RN) Med Hx Autoimmune Disorder: No (10/13/2016 12:51:Crystal Richard RN) Med Hx Kidney Disease/UTI: No (10/13/2016 12:51:Crystal Richard RN) Med Hx Neurologic/Epilepsy: No (10/13/2016 12:51:Crystal Richard RN) Med Hx Psychiatric Disorders: Yes (10/13/2016 12:51:Crystal Richard RN) Med Hx Hepatitis/Liver Disease: No (10/13/2016 12:51:Crystal Richard RN) Med Hx Varicosities/Phlebitis: No (10/13/2016 12:51:Crystal Richard RN) Med Hx Thyroid Dysfunction: No (10/13/2016 12:51:Crystal Richard RN) Med Hx Trauma/Violence: No (10/13/2016 12:51:Crystal Richard RN) Med Hx Blood Transfusion: No (10/13/2016 12:51:Crystal Richard RN) Med Hx Pulmonary (Asthma,TB): No (10/13/2016 12:51:Crystal Richard RN) Med Hx Breast: No (10/13/2016 12:51:Crystal Richard RN) Med Hx YARDAGE CONTROL OPERATOR Surgery: No (10/13/2016 12:51:Crystal Richard RN) Med Hx Hospitalization/Surgery: Yes (10/13/2016 12:51:Crystal Richard RN) Med Hx Anesthetic Complications: No (10/13/2016 12:51:Crystal Richard RN) Med Hx Abnormal Pap Smear: Yes (10/13/2016 12:51:Crystal Richard RN) Other Medical Diseases: No (10/13/2016 12:51:Crystal Richard RN) Med Hx Significant Family Hx: No (10/13/2016 12:51:Crystal Richard RN) Details of Med/Surg Hx: Pt states she feels like she will have PP depression - pregancy not planned and pt constantly emotional, multiple abnl paps, chronic BV (10/13/2016 12:51:Crystal Richard RN) INFECTIOUS HISTORY Inf Hx Gonorrhea: No (10/13/2016 12:51:Crystal Richard RN) Inf Hx Chlamydia: No (10/13/2016 12:51:Crystal Richard RN) Inf Hx Syphilis: No (10/13/2016 12:51:Crystal Richard RN) Inf Hx HIV/AIDS: No (10/13/2016 12:51:Crystal Richard RN) Inf Hx Human Papilloma Virus: No (10/13/2016 12:51:Crystal Richard RN) Inf Hx Pt/Partner Genital Herpes: No (10/13/2016 12:51:Crystal Richard RN) Inf Hx Tuberculosis/Exposure: No (10/13/2016 12:51:Crystal Richard RN) Inf Hx Hepatitis B,C: No (10/13/2016 12:51:Crystal Richard RN) Inf Hx Rash or Viral Illness: No (10/13/2016 12:51:Crystal Richard RN) GENETIC HISTORY Gen Hx Age >=35 at RUDY: No (10/13/2016 12:51:Crystal Richard RN) Gen Hx Thalassemia: No (10/13/2016 12:51:Crystal Richard RN) Gen Hx Congenital Heart Defect: No (10/13/2016 12:51:Crystal Richard RN) Gen Hx Neural Tube Defect: No (10/13/2016 12:51:Crystal Richard RN) Gen Hx Down's Syndrome: No (10/13/2016 12:51:Crystal Richard RN) Gen Hx Jose-Sachs: No (10/13/2016 12:51:Crystal Richard RN) Gen Hx Froylan: No (10/13/2016 12:51:Crystal Richard RN) Gen Hx Familial Dysautonomia: No (10/13/2016 12:51:Crystal Richard RN) Gen Hx Sickle Cell Disease/Trait: No (10/13/2016 12:51:Crystal Richard RN) Gen Hx Hemophilia/Blood Disorder: No (10/13/2016 12:51:Crystal Richard RN) Gen Hx Muscular Dystrophy: No (10/13/2016 12:51:Crystal Richard RN) Gen Hx Cystic Fibrosis: No (10/13/2016 12:51:Crystal Richard RN) Gen Hx Huntingtons Chorea: No (10/13/2016 12:51:Crystal Richard RN) Gen Hx Mental Retardation/Autism: No (10/13/2016 12:51:Crystal Richard RN) Gen Hx Tested for Fragile X: No (10/13/2016 12:51:Crystal Richard RN) Gen Hx Other Inher/Chromosomal: No (10/13/2016 12:51:Crystal Richard RN) Gen Hx Maternal Metabolic DO: No (10/13/2016 12:51:Crystal Richard RN) Gen Hx Pt Father or FOB Defect: No (10/13/2016 12:51:Crystal Richard RN) Gen Hx Other Genetic History: No (10/13/2016 12:51:Crystal Richard RN) Gen Hx Drugs/Meds since LMP: Yes (10/13/2016 12:51:Crystal Richard RN) Gen Hx Medications: PNV, Flagyl, vaginal cream (10/13/2016 12:51:Crystal Richard RN)
--- NOTE | 2016-12-27 10:45 | L&D Discharge Summary ---
OB Discharge Summary Datetime Report Generated by CPN: 12/27/2016 10:45 DISCHARGE DIAGNOSIS Diagnosis/Symptoms: False Labor Diagnoses/Symptoms Other: not ruptured; false labor Gestation: 39.1 Number of Babies in Womb: 1 Parity: 1 DIET/ACTIVITY/RESTRICTIONS Diet: Regular Activity: Normal Activity TEACHING/INSTRUCTIONS/REFERRALS Instructions Given To: Patient and family member Instructions Understood: Patient Verbalized Understanding; Support Person Verbalized Understanding Referrals: None Educational Materials- Other: kick counts DISCHARGE INFORMATION Discharged AMA: No Discharge Date/Time: 12/26/2016 11:02 Discharged To: Home Discharge Provider Name: Dr. Ochoa Accompanied By: family member Discharge Method: Ambulatory Condition: Stable FOLLOW UP INFORMATION Follow Up With: [facility] Follow Up On: As Scheduled Follow Up Phone Number: [facility] - GENERAL INSTR-CALL PROVIDER IF: Contractions: Contractions or cramps become more frequent than 8 in one hour or 4 in 20 minutes; Regular painful contractions every 5 minutes or less for one hour. Time your contractions from the beginning of one to the beginning of the next Pressure: Pressure in your vagina or lower abdomen that may feel like the baby is pushing down Period Like Cramps: Period-like cramps or low dull backache that may come and go Cramps/Diarrhea: Abdominal cramps that may be accompanied by diarrhea Gush of Fluid/Blood: Gush of fluid or blood from your vagina (it is normal to have spotting after vaginal exam or intercourse) Vaginal Discharge: Change in the type or amount of vaginal discharge Decreased Movement: Your baby is not moving as much as usual- 4 movements in 1 hour after drinking and resting on side Temperature: Temperature greater than 100.0(F) orally
--- NOTE | 2016-12-27 10:45 | L&D Current Admission ---
Current Admit Datetime Report Generated by CPN: 12/27/2016 10:45 ADMISSION INFORMATION Chief Complaint: Contractions; Suspected Rupture of Membranes (12/26/2016 10:27:Marivel Nance RN) Chief Complaint: Uterine Cramping (10/13/2016 13:15:Crystal Richard RN)
--- NOTE | 2016-12-27 10:45 | Antepartum Discharge Summary ---
Antepartum DC Datetime Report Generated by CPN: 12/27/2016 10:45 DIET/ACTIVITY/RESTRICTIONS Diet: Regular (12/26/2016 11:02:Marivel Nance RN) Activity: Normal Activity (12/26/2016 11:02:Marivel Nance, RN) TEACHING/INSTRUCTIONS/REFERRALS Instructions Given To: Patient and family member (12/26/2016 11:02:Marivel Nance RN) Instructions Understood: Patient Verbalized Understanding; Support Person Verbalized Understanding (12/26/2016 11:02:Marivel Nance RN) Referrals: None (12/26/2016 11:02:Marivel Nance RN) Educational Materials- Other: kick counts (12/26/2016 11:02:Marivel Nance RN) DISCHARGE INFORMATION Discharged AMA: No (12/26/2016 11:02:Marivel Nance RN) Discharge Date/Time: 12/26/2016 11:02 (12/26/2016 11:02:Marivel Nance RN) Discharged To: Home (12/26/2016 11:02:Marivel Nance RN) Discharge Provider Name: Dr. Ochoa (12/26/2016 11:02:Marivel Nance RN) Accompanied By: family member (12/26/2016 11:02:Marivel Nance RN) Discharge Method: Ambulatory (12/26/2016 11:02:Marievl Nance RN) Condition: Stable (12/26/2016 11:02:Marivel Nance RN) FOLLOW UP INFORMATION Follow Up With: [facility] (12/26/2016 11:02:Marivel Nance RN) Follow Up On: As Scheduled (12/26/2016 11:02:Marivel Nance RN) Follow Up Phone Number: [facility] - (12/26/2016 11:02:Marivel Nance RN) GENERAL INSTR-CALL PROVIDER IF: Contractions: Contractions or cramps become more frequent than 8 in one hour or 4 in 20 minutes; Regular painful contractions every 5 minutes or less for one hour. Time your contractions from the beginning of one to the beginning of the next (12/26/2016 11:02:Marivel Nance RN) Pressure: Pressure in your vagina or lower abdomen that may feel like the baby is pushing down (12/26/2016 11:02:Marivel Nance RN) Period Like Cramps: Period-like cramps or low dull backache that may come and go (12/26/2016 11:02:Marivel Nance RN) Cramps/Diarrhea: Abdominal cramps that may be accompanied by diarrhea (12/26/2016 11:02:Marivel Nance RN) Gush of Fluid/Blood: Gush of fluid or blood from your vagina (it is normal to have spotting after vaginal exam or intercourse) (12/26/2016 11:02:Marivel Nance RN) Vaginal Discharge: Change in the type or amount of vaginal discharge (12/26/2016 11:02:Marivel Nance RN) Decreased Movement: Your baby is not moving as much as usual- 4 movements in 1 hour after drinking and resting on side (12/26/2016 11:02:Marivel Nance RN) Temperature: Temperature greater than 100.0(F) orally (12/26/2016 11:02:Marivel Nance RN) Hypertension Signs/Symptoms: Severe headache which is not relieved 30 minutes after taking Tylenol(Acetaminophen); Blurry vision or spots before your eyes; Severe heartburn or pain on the upper right side of your abdomen that is not relieved by an antacid; Increased swelling in your face, hands or feet (12/26/2016 11:02:Marivel Nance RN) Urinary Output: Decreased urinary output or dark colored urine (12/26/2016 11:02:Marivel Nance RN)
--- NOTE | 2016-12-27 16:45 | L&D Discharge Summary ---
OB Discharge Summary Datetime Report Generated by CPN: 12/27/2016 16:45 DISCHARGE DIAGNOSIS Diagnosis/Symptoms: False Labor Diagnoses/Symptoms Other: not ruptured; false labor Gestation: 39.1 Number of Babies in Womb: 1 Parity: 1 DIET/ACTIVITY/RESTRICTIONS Diet: Regular Activity: Normal Activity TEACHING/INSTRUCTIONS/REFERRALS Instructions Given To: Patient and family member Instructions Understood: Patient Verbalized Understanding; Support Person Verbalized Understanding Referrals: None Educational Materials- Other: kick counts DISCHARGE INFORMATION Discharged AMA: No Discharge Date/Time: 12/26/2016 11:02 Discharged To: Home Discharge Provider Name: Dr. Ochoa Accompanied By: family member Discharge Method: Ambulatory Condition: Stable FOLLOW UP INFORMATION Follow Up With: [facility] Follow Up On: As Scheduled Follow Up Phone Number: [facility] - GENERAL INSTR-CALL PROVIDER IF: Contractions: Contractions or cramps become more frequent than 8 in one hour or 4 in 20 minutes; Regular painful contractions every 5 minutes or less for one hour. Time your contractions from the beginning of one to the beginning of the next Pressure: Pressure in your vagina or lower abdomen that may feel like the baby is pushing down Period Like Cramps: Period-like cramps or low dull backache that may come and go Cramps/Diarrhea: Abdominal cramps that may be accompanied by diarrhea Gush of Fluid/Blood: Gush of fluid or blood from your vagina (it is normal to have spotting after vaginal exam or intercourse) Vaginal Discharge: Change in the type or amount of vaginal discharge Decreased Movement: Your baby is not moving as much as usual- 4 movements in 1 hour after drinking and resting on side Temperature: Temperature greater than 100.0(F) orally
--- NOTE | 2016-12-27 22:45 | L&D Discharge Summary ---
OB Discharge Summary Datetime Report Generated by CPN: 12/27/2016 22:45 DISCHARGE DIAGNOSIS Diagnosis/Symptoms: False Labor Diagnoses/Symptoms Other: not ruptured; false labor Gestation: 39.1 Number of Babies in Womb: 1 Parity: 1 DIET/ACTIVITY/RESTRICTIONS Diet: Regular Activity: Normal Activity TEACHING/INSTRUCTIONS/REFERRALS Instructions Given To: Patient and family member Instructions Understood: Patient Verbalized Understanding; Support Person Verbalized Understanding Referrals: None Educational Materials- Other: kick counts DISCHARGE INFORMATION Discharged AMA: No Discharge Date/Time: 12/26/2016 11:02 Discharged To: Home Discharge Provider Name: Dr. Ochoa Accompanied By: family member Discharge Method: Ambulatory Condition: Stable FOLLOW UP INFORMATION Follow Up With: [facility] Follow Up On: As Scheduled Follow Up Phone Number: [facility] - GENERAL INSTR-CALL PROVIDER IF: Contractions: Contractions or cramps become more frequent than 8 in one hour or 4 in 20 minutes; Regular painful contractions every 5 minutes or less for one hour. Time your contractions from the beginning of one to the beginning of the next Pressure: Pressure in your vagina or lower abdomen that may feel like the baby is pushing down Period Like Cramps: Period-like cramps or low dull backache that may come and go Cramps/Diarrhea: Abdominal cramps that may be accompanied by diarrhea Gush of Fluid/Blood: Gush of fluid or blood from your vagina (it is normal to have spotting after vaginal exam or intercourse) Vaginal Discharge: Change in the type or amount of vaginal discharge Decreased Movement: Your baby is not moving as much as usual- 4 movements in 1 hour after drinking and resting on side Temperature: Temperature greater than 100.0(F) orally
--- NOTE | 2016-12-28 04:45 | L&D Discharge Summary ---
OB Discharge Summary Datetime Report Generated by CPN: 12/28/2016 04:45 DISCHARGE DIAGNOSIS Diagnosis/Symptoms: False Labor Diagnoses/Symptoms Other: not ruptured; false labor Gestation: 39.1 Number of Babies in Womb: 1 Parity: 1 DIET/ACTIVITY/RESTRICTIONS Diet: Regular Activity: Normal Activity TEACHING/INSTRUCTIONS/REFERRALS Instructions Given To: Patient and family member Instructions Understood: Patient Verbalized Understanding; Support Person Verbalized Understanding Referrals: None Educational Materials- Other: kick counts DISCHARGE INFORMATION Discharged AMA: No Discharge Date/Time: 12/26/2016 11:02 Discharged To: Home Discharge Provider Name: Dr. Ochoa Accompanied By: family member Discharge Method: Ambulatory Condition: Stable FOLLOW UP INFORMATION Follow Up With: [facility] Follow Up On: As Scheduled Follow Up Phone Number: [facility] - GENERAL INSTR-CALL PROVIDER IF: Contractions: Contractions or cramps become more frequent than 8 in one hour or 4 in 20 minutes; Regular painful contractions every 5 minutes or less for one hour. Time your contractions from the beginning of one to the beginning of the next Pressure: Pressure in your vagina or lower abdomen that may feel like the baby is pushing down Period Like Cramps: Period-like cramps or low dull backache that may come and go Cramps/Diarrhea: Abdominal cramps that may be accompanied by diarrhea Gush of Fluid/Blood: Gush of fluid or blood from your vagina (it is normal to have spotting after vaginal exam or intercourse) Vaginal Discharge: Change in the type or amount of vaginal discharge Decreased Movement: Your baby is not moving as much as usual- 4 movements in 1 hour after drinking and resting on side Temperature: Temperature greater than 100.0(F) orally
--- NOTE | 2016-12-28 10:45 | L&D Discharge Summary ---
OB Discharge Summary Datetime Report Generated by CPN: 12/28/2016 10:45 DISCHARGE DIAGNOSIS Diagnosis/Symptoms: False Labor Diagnoses/Symptoms Other: not ruptured; false labor Gestation: 39.1 Number of Babies in Womb: 1 Parity: 1 DIET/ACTIVITY/RESTRICTIONS Diet: Regular Activity: Normal Activity TEACHING/INSTRUCTIONS/REFERRALS Instructions Given To: Patient and family member Instructions Understood: Patient Verbalized Understanding; Support Person Verbalized Understanding Referrals: None Educational Materials- Other: kick counts DISCHARGE INFORMATION Discharged AMA: No Discharge Date/Time: 12/26/2016 11:02 Discharged To: Home Discharge Provider Name: Dr. Ochoa Accompanied By: family member Discharge Method: Ambulatory Condition: Stable FOLLOW UP INFORMATION Follow Up With: [facility] Follow Up On: As Scheduled Follow Up Phone Number: [facility] - GENERAL INSTR-CALL PROVIDER IF: Contractions: Contractions or cramps become more frequent than 8 in one hour or 4 in 20 minutes; Regular painful contractions every 5 minutes or less for one hour. Time your contractions from the beginning of one to the beginning of the next Pressure: Pressure in your vagina or lower abdomen that may feel like the baby is pushing down Period Like Cramps: Period-like cramps or low dull backache that may come and go Cramps/Diarrhea: Abdominal cramps that may be accompanied by diarrhea Gush of Fluid/Blood: Gush of fluid or blood from your vagina (it is normal to have spotting after vaginal exam or intercourse) Vaginal Discharge: Change in the type or amount of vaginal discharge Decreased Movement: Your baby is not moving as much as usual- 4 movements in 1 hour after drinking and resting on side Temperature: Temperature greater than 100.0(F) orally
--- NOTE | 2016-12-28 16:45 | L&D Discharge Summary ---
OB Discharge Summary Datetime Report Generated by CPN: 12/28/2016 16:45 DISCHARGE DIAGNOSIS Diagnosis/Symptoms: False Labor Diagnoses/Symptoms Other: not ruptured; false labor Gestation: 39.1 Number of Babies in Womb: 1 Parity: 1 DIET/ACTIVITY/RESTRICTIONS Diet: Regular Activity: Normal Activity TEACHING/INSTRUCTIONS/REFERRALS Instructions Given To: Patient and family member Instructions Understood: Patient Verbalized Understanding; Support Person Verbalized Understanding Referrals: None Educational Materials- Other: kick counts DISCHARGE INFORMATION Discharged AMA: No Discharge Date/Time: 12/26/2016 11:02 Discharged To: Home Discharge Provider Name: Dr. Ochoa Accompanied By: family member Discharge Method: Ambulatory Condition: Stable FOLLOW UP INFORMATION Follow Up With: [facility] Follow Up On: As Scheduled Follow Up Phone Number: [facility] - GENERAL INSTR-CALL PROVIDER IF: Contractions: Contractions or cramps become more frequent than 8 in one hour or 4 in 20 minutes; Regular painful contractions every 5 minutes or less for one hour. Time your contractions from the beginning of one to the beginning of the next Pressure: Pressure in your vagina or lower abdomen that may feel like the baby is pushing down Period Like Cramps: Period-like cramps or low dull backache that may come and go Cramps/Diarrhea: Abdominal cramps that may be accompanied by diarrhea Gush of Fluid/Blood: Gush of fluid or blood from your vagina (it is normal to have spotting after vaginal exam or intercourse) Vaginal Discharge: Change in the type or amount of vaginal discharge Decreased Movement: Your baby is not moving as much as usual- 4 movements in 1 hour after drinking and resting on side Temperature: Temperature greater than 100.0(F) orally
--- NOTE | 2016-12-28 22:45 | L&D Discharge Summary ---
OB Discharge Summary Datetime Report Generated by CPN: 12/28/2016 22:45 DISCHARGE DIAGNOSIS Diagnosis/Symptoms: False Labor Diagnoses/Symptoms Other: not ruptured; false labor Gestation: 39.1 Number of Babies in Womb: 1 Parity: 1 DIET/ACTIVITY/RESTRICTIONS Diet: Regular Activity: Normal Activity TEACHING/INSTRUCTIONS/REFERRALS Instructions Given To: Patient and family member Instructions Understood: Patient Verbalized Understanding; Support Person Verbalized Understanding Referrals: None Educational Materials- Other: kick counts DISCHARGE INFORMATION Discharged AMA: No Discharge Date/Time: 12/26/2016 11:02 Discharged To: Home Discharge Provider Name: Dr. Ochoa Accompanied By: family member Discharge Method: Ambulatory Condition: Stable FOLLOW UP INFORMATION Follow Up With: [facility] Follow Up On: As Scheduled Follow Up Phone Number: [facility] - GENERAL INSTR-CALL PROVIDER IF: Contractions: Contractions or cramps become more frequent than 8 in one hour or 4 in 20 minutes; Regular painful contractions every 5 minutes or less for one hour. Time your contractions from the beginning of one to the beginning of the next Pressure: Pressure in your vagina or lower abdomen that may feel like the baby is pushing down Period Like Cramps: Period-like cramps or low dull backache that may come and go Cramps/Diarrhea: Abdominal cramps that may be accompanied by diarrhea Gush of Fluid/Blood: Gush of fluid or blood from your vagina (it is normal to have spotting after vaginal exam or intercourse) Vaginal Discharge: Change in the type or amount of vaginal discharge Decreased Movement: Your baby is not moving as much as usual- 4 movements in 1 hour after drinking and resting on side Temperature: Temperature greater than 100.0(F) orally
--- NOTE | 2016-12-29 04:45 | L&D Discharge Summary ---
OB Discharge Summary Datetime Report Generated by CPN: 12/29/2016 04:45 DISCHARGE DIAGNOSIS Diagnosis/Symptoms: False Labor Diagnoses/Symptoms Other: not ruptured; false labor Gestation: 39.1 Number of Babies in Womb: 1 Parity: 1 DIET/ACTIVITY/RESTRICTIONS Diet: Regular Activity: Normal Activity TEACHING/INSTRUCTIONS/REFERRALS Instructions Given To: Patient and family member Instructions Understood: Patient Verbalized Understanding; Support Person Verbalized Understanding Referrals: None Educational Materials- Other: kick counts DISCHARGE INFORMATION Discharged AMA: No Discharge Date/Time: 12/26/2016 11:02 Discharged To: Home Discharge Provider Name: Dr. Ochoa Accompanied By: family member Discharge Method: Ambulatory Condition: Stable FOLLOW UP INFORMATION Follow Up With: [facility] Follow Up On: As Scheduled Follow Up Phone Number: [facility] - GENERAL INSTR-CALL PROVIDER IF: Contractions: Contractions or cramps become more frequent than 8 in one hour or 4 in 20 minutes; Regular painful contractions every 5 minutes or less for one hour. Time your contractions from the beginning of one to the beginning of the next Pressure: Pressure in your vagina or lower abdomen that may feel like the baby is pushing down Period Like Cramps: Period-like cramps or low dull backache that may come and go Cramps/Diarrhea: Abdominal cramps that may be accompanied by diarrhea Gush of Fluid/Blood: Gush of fluid or blood from your vagina (it is normal to have spotting after vaginal exam or intercourse) Vaginal Discharge: Change in the type or amount of vaginal discharge Decreased Movement: Your baby is not moving as much as usual- 4 movements in 1 hour after drinking and resting on side Temperature: Temperature greater than 100.0(F) orally
--- NOTE | 2016-12-29 10:46 | L&D Discharge Summary ---
OB Discharge Summary Datetime Report Generated by CPN: 12/29/2016 10:45 DISCHARGE DIAGNOSIS Diagnosis/Symptoms: False Labor Diagnoses/Symptoms Other: not ruptured; false labor Gestation: 39.1 Number of Babies in Womb: 1 Parity: 1 DIET/ACTIVITY/RESTRICTIONS Diet: Regular Activity: Normal Activity TEACHING/INSTRUCTIONS/REFERRALS Instructions Given To: Patient and family member Instructions Understood: Patient Verbalized Understanding; Support Person Verbalized Understanding Referrals: None Educational Materials- Other: kick counts DISCHARGE INFORMATION Discharged AMA: No Discharge Date/Time: 12/26/2016 11:02 Discharged To: Home Discharge Provider Name: Dr. Ochoa Accompanied By: family member Discharge Method: Ambulatory Condition: Stable FOLLOW UP INFORMATION Follow Up With: [facility] Follow Up On: As Scheduled Follow Up Phone Number: [facility] - GENERAL INSTR-CALL PROVIDER IF: Contractions: Contractions or cramps become more frequent than 8 in one hour or 4 in 20 minutes; Regular painful contractions every 5 minutes or less for one hour. Time your contractions from the beginning of one to the beginning of the next Pressure: Pressure in your vagina or lower abdomen that may feel like the baby is pushing down Period Like Cramps: Period-like cramps or low dull backache that may come and go Cramps/Diarrhea: Abdominal cramps that may be accompanied by diarrhea Gush of Fluid/Blood: Gush of fluid or blood from your vagina (it is normal to have spotting after vaginal exam or intercourse) Vaginal Discharge: Change in the type or amount of vaginal discharge Decreased Movement: Your baby is not moving as much as usual- 4 movements in 1 hour after drinking and resting on side Temperature: Temperature greater than 100.0(F) orally
--- NOTE | 2016-12-29 16:45 | L&D Discharge Summary ---
OB Discharge Summary Datetime Report Generated by CPN: 12/29/2016 16:45 DISCHARGE DIAGNOSIS Diagnosis/Symptoms: False Labor Diagnoses/Symptoms Other: not ruptured; false labor Gestation: 39.1 Number of Babies in Womb: 1 Parity: 1 DIET/ACTIVITY/RESTRICTIONS Diet: Regular Activity: Normal Activity TEACHING/INSTRUCTIONS/REFERRALS Instructions Given To: Patient and family member Instructions Understood: Patient Verbalized Understanding; Support Person Verbalized Understanding Referrals: None Educational Materials- Other: kick counts DISCHARGE INFORMATION Discharged AMA: No Discharge Date/Time: 12/26/2016 11:02 Discharged To: Home Discharge Provider Name: Dr. Ochoa Accompanied By: family member Discharge Method: Ambulatory Condition: Stable FOLLOW UP INFORMATION Follow Up With: [facility] Follow Up On: As Scheduled Follow Up Phone Number: [facility] - GENERAL INSTR-CALL PROVIDER IF: Contractions: Contractions or cramps become more frequent than 8 in one hour or 4 in 20 minutes; Regular painful contractions every 5 minutes or less for one hour. Time your contractions from the beginning of one to the beginning of the next Pressure: Pressure in your vagina or lower abdomen that may feel like the baby is pushing down Period Like Cramps: Period-like cramps or low dull backache that may come and go Cramps/Diarrhea: Abdominal cramps that may be accompanied by diarrhea Gush of Fluid/Blood: Gush of fluid or blood from your vagina (it is normal to have spotting after vaginal exam or intercourse) Vaginal Discharge: Change in the type or amount of vaginal discharge Decreased Movement: Your baby is not moving as much as usual- 4 movements in 1 hour after drinking and resting on side Temperature: Temperature greater than 100.0(F) orally
--- NOTE | 2016-12-29 22:46 | L&D Discharge Summary ---
OB Discharge Summary Datetime Report Generated by CPN: 12/29/2016 22:45 DISCHARGE DIAGNOSIS Diagnosis/Symptoms: False Labor Diagnoses/Symptoms Other: not ruptured; false labor Gestation: 39.1 Number of Babies in Womb: 1 Parity: 1 DIET/ACTIVITY/RESTRICTIONS Diet: Regular Activity: Normal Activity TEACHING/INSTRUCTIONS/REFERRALS Instructions Given To: Patient and family member Instructions Understood: Patient Verbalized Understanding; Support Person Verbalized Understanding Referrals: None Educational Materials- Other: kick counts DISCHARGE INFORMATION Discharged AMA: No Discharge Date/Time: 12/26/2016 11:02 Discharged To: Home Discharge Provider Name: Dr. Ochoa Accompanied By: family member Discharge Method: Ambulatory Condition: Stable FOLLOW UP INFORMATION Follow Up With: [facility] Follow Up On: As Scheduled Follow Up Phone Number: [facility] - GENERAL INSTR-CALL PROVIDER IF: Contractions: Contractions or cramps become more frequent than 8 in one hour or 4 in 20 minutes; Regular painful contractions every 5 minutes or less for one hour. Time your contractions from the beginning of one to the beginning of the next Pressure: Pressure in your vagina or lower abdomen that may feel like the baby is pushing down Period Like Cramps: Period-like cramps or low dull backache that may come and go Cramps/Diarrhea: Abdominal cramps that may be accompanied by diarrhea Gush of Fluid/Blood: Gush of fluid or blood from your vagina (it is normal to have spotting after vaginal exam or intercourse) Vaginal Discharge: Change in the type or amount of vaginal discharge Decreased Movement: Your baby is not moving as much as usual- 4 movements in 1 hour after drinking and resting on side Temperature: Temperature greater than 100.0(F) orally
--- NOTE | 2016-12-30 04:46 | L&D Discharge Summary ---
OB Discharge Summary Datetime Report Generated by CPN: 12/30/2016 04:45 DISCHARGE DIAGNOSIS Diagnosis/Symptoms: False Labor Diagnoses/Symptoms Other: not ruptured; false labor Gestation: 39.1 Number of Babies in Womb: 1 Parity: 1 DIET/ACTIVITY/RESTRICTIONS Diet: Regular Activity: Normal Activity TEACHING/INSTRUCTIONS/REFERRALS Instructions Given To: Patient and family member Instructions Understood: Patient Verbalized Understanding; Support Person Verbalized Understanding Referrals: None Educational Materials- Other: kick counts DISCHARGE INFORMATION Discharged AMA: No Discharge Date/Time: 12/26/2016 11:02 Discharged To: Home Discharge Provider Name: Dr. Ochoa Accompanied By: family member Discharge Method: Ambulatory Condition: Stable FOLLOW UP INFORMATION Follow Up With: [facility] Follow Up On: As Scheduled Follow Up Phone Number: [facility] - GENERAL INSTR-CALL PROVIDER IF: Contractions: Contractions or cramps become more frequent than 8 in one hour or 4 in 20 minutes; Regular painful contractions every 5 minutes or less for one hour. Time your contractions from the beginning of one to the beginning of the next Pressure: Pressure in your vagina or lower abdomen that may feel like the baby is pushing down Period Like Cramps: Period-like cramps or low dull backache that may come and go Cramps/Diarrhea: Abdominal cramps that may be accompanied by diarrhea Gush of Fluid/Blood: Gush of fluid or blood from your vagina (it is normal to have spotting after vaginal exam or intercourse) Vaginal Discharge: Change in the type or amount of vaginal discharge Decreased Movement: Your baby is not moving as much as usual- 4 movements in 1 hour after drinking and resting on side Temperature: Temperature greater than 100.0(F) orally
== END 2016-12-26 11:02 | disposition home or self-care (01) ==
LOC: ER 09:46 → EDSTATUS 10:02 → LC 10:04
PROVIDERS: ATTEND Student in an Organized Health Care Education/Training Program
PROC: 4A1HXCZ Monitoring of Products of Conception, Cardiac Rate, External Approach (ICD-10-PCS; principal; 2016-12-26)
DX: O47.1 False labor at or after 37 completed weeks of gestation (principal); Z3A.39 39 weeks gestation of pregnancy
CPT/HCPCS: 59025; 80307; 81005; 84112

== ENCOUNTER 2016-12-30 09:50 | Outpatient (CLI) | payer MEDICAID ==
[2016-12-30 10:21] LABS: APPEARANCE,URINE SLIGHTLY-CLOUDY; BILIRUBIN,URINE NEGATIVE (NEGATIVE); GLUCOSE, URINE NEGATIVE (NEGATIVE); KETONES,URINE NEGATIVE (NEGATIVE); LEUKOCYTE ESTERASE,URINE NEGATIVE (NEGATIVE); NITRITE,URINE NEGATIVE (NEGATIVE); PROTEIN,URINE NEGATIVE (NEGATIVE); URINE SPECIFIC GRAVITY 1.009; UROBILINOGEN,URINE NEGATIVE mg/dL (<2.0)
[2016-12-30 10:38] LABS: URINE BARBITURATES SCREEN NEGATIVE; URINE METHADONE SCREEN NEGATIVE; URINE OPIATES LOW NEGATIVE; URINE PHENCYCLIDINE SCREEN NEGATIVE
--- NOTE | 2016-12-30 10:48 | Non Stress Test Report ---
Non Stress Test Datetime Report Generated by CPN: 12/30/2016 10:48 DEMOGRAPHIC EGA NST: 39.5 INDICATION Indication for Study (NST) Other: LC MONITORING Monitor Explained: Monitor Explained; Test Explained; Patient Verbalized Understanding Time on Monitor: 12/30/2016 10:06 Time off Monitor: 12/30/2016 10:40 NST Duration: 34 NST INTERVENTIONS NST Interventions: None Physician Notified NST: J. Shepard CNM BABY A Movement : Present Contraction Frequency : irreg FHR Baseline : 135 Accelerations : 15X15 Decelerations : None Variability : Moderate 6-25bpm NST Review: Meets Criteria for Reactive NST NST Review and Verified By : D Bellavance RNC NST Results: Reactive NST REPORT Report Trigger: Send Report
--- NOTE | 2016-12-31 17:57 | Antepartum Discharge Summary ---
Antepartum DC Datetime Report Generated by CPN: 12/31/2016 17:57 Diet: Regular (12/30/2016 10:47:Crystal Richard RN) Activity: Normal Activity (12/30/2016 10:47:Crystal Richard RN) Instructions Given To: Patient/Family (12/30/2016 10:47:Crystal Richard RN) Instructions Understood: Patient Verbalized Understanding; Support Person Verbalized Understanding (12/30/2016 10:47:Crystal Richard RN) Referrals: None (12/30/2016 10:47:Crystal Richard RN) Educational Materials- Other: kick counts, labor signs (12/30/2016 10:47:Crystal Richard RN) Discharged AMA: No (12/30/2016 10:47:Crystal Richard RN) Discharge Date/Time: 12/30/2016 10:47 (12/30/2016 10:47:Crystal Richard RN) Discharged To: Home (12/30/2016 10:47:Crystal Richard RN) Discharge Provider Name: Cirilo Shepard CNM (12/30/2016 10:47:Crystal Richard RN) Accompanied By: mother (12/30/2016 10:47:Crystal Richard RN) Discharge Method: Ambulatory (12/30/2016 10:47:Crystal Richard RN) Condition: Stable (12/30/2016 10:47:Crystal Richard RN) Follow Up With: [facility] (12/30/2016 10:47:Crystal Richard RN) Follow Up On: As Scheduled (12/30/2016 10:47:Crystal Richard RN) Follow Up Phone Number: [facility] - (12/30/2016 10:47:Crystal Richard RN) Comments: Provider aware of pain level (12/30/2016 10:47:Crystal Richard RN)
--- NOTE | 2016-12-31 17:58 | L&D Current Admission ---
Current Admit Datetime Report Generated by CPN: 12/31/2016 17:57 Chief Complaint: pressure (12/30/2016 10:17:Crystal Richard RN)
--- NOTE | 2016-12-31 17:58 | L&D Admission Assessment ---
LD ADM ASMT Datetime Report Generated by CPN: 12/31/2016 17:58 Assessment Type: Triage (12/30/2016 10:17:Crystal Richard RN) Pain Scale: 5 (12/30/2016 10:17:Crystal Richard RN) Pain Presence: Constant (12/30/2016 10:17:Crystal Richard RN) Pain Type: Pressure (12/30/2016 10:17:Crystal Richard RN) Pain Location: Perineum (12/30/2016 10:17:Crystal Richard RN) Pain Comments: pt not in any apparent distress (12/30/2016 10:17:Crystal Richard RN) Dilatation (cm): 2.0 (12/30/2016 10:09:Crystal Richard RN) Effacement (%): 70 (12/30/2016 10:09:Crystal Richard RN) Station: -3 (12/30/2016 10:09:Crystal Richard RN) Level of Consciousness: Fully Conscious (12/30/2016 10:17:Crystal Richard RN) DTR's/Clonus: DTRs 2+; No Clonus (12/30/2016 10:17:Crystal Richard RN) Headache: Denies (12/30/2016 10:17:Crystal Richard RN) Dizziness: Yes (12/30/2016 10:17:Crystal Richard RN) Blurred Vision: No (12/30/2016 10:17:Crystal Richard RN) Extremity Numbness/Tingling : None (12/30/2016 10:17:Crystal Richard RN) Extremity Movement: Full Range of Motion (12/30/2016 10:17:Crystal Richard RN) Heart Rhythm: Regular (12/30/2016 10:17:Crystal Richard RN) Nailbeds: [place] (12/30/2016 10:17:Crystal Richard RN) Capillary Refill: Less than 3 Seconds (12/30/2016 10:17:Crystal Richard RN) Facial Edema: None (12/30/2016 10:17:Crystal Richard RN) Respiratory Effort: Unlabored; Regular Rhythm; Equal Expansion (12/30/2016 10:17:Crystal Richard RN) Breath Sounds, Left: Clear and Equal (12/30/2016 10:17:Crystal Richard RN) Breath Sounds, Right: Clear and Equal (12/30/2016 10:17:Crystal Richard RN) Cough Productivity: None (12/30/2016 10:17:Crystal Richard RN) Nausea/Vomiting: Denies (12/30/2016 10:17:Crystal Richard RN) Bowel Sounds: Normoactive; All Quadrants (12/30/2016 10:17:Crystal Richard RN) RUQ Epigastric Pain: Denies (12/30/2016 10:17:Crystal Richard RN) Bladder: Nondistended (12/30/2016 10:17:Crystal Richard RN) Frequency of Urination: No (12/30/2016 10:17:Crystal Richard RN) Urination Burning: No (12/30/2016 10:17:Crystal Richard RN) CVA Tenderness: No (12/30/2016 10:17:Crystal Richard RN) Vaginal Bleeding: None (12/30/2016 10:17:Crystal Richard RN) Vaginal Discharge Amount: None (12/30/2016 10:17:Crystal Richard RN) Vaginal Discharge Color: N/A (12/30/2016 10:17:Crystal Richard RN) Skin Color: Normal for Race (12/30/2016 10:17:Crystal Richard RN) Skin Temperature: Warm (12/30/2016 10:17:Crystal Richard RN) Skin Moisture: Dry (12/30/2016 10:17:Crystal Richard RN) Amadou Scale Sensory Perception: No Impairment- Responds to verbal commands. Has no sensory deficit which would limit ability to feel or voice pain or discomfort (12/30/2016 10:17:Crystal Richard RN) Amadou Scale Moisture: Rarely Moist- Skin is usually dry. Linen only requires changing at routine intervals (12/30/2016 10:17:Crystal Richard RN) Amadou Scale Activity: Walks Frequently- Walks outside the room at least twice a day and inside room at least every 2 hours during the day. (12/30/2016 10:17:Crystal Richard RN) Amadou Scale Mobility: No Limitations- Makes major and frequent changes in position without assistance (12/30/2016 10:17:Crystal Richard RN) Amadou Scale Nutrition: Excellent- Eats most of every meal. Never refuses a meal. Usually eats a total of 4 or more servings of meat and dairy products. Occasionally eats between meals. Does not require supplementation (12/30/2016 10:17:Crystal Richard RN) Amadou Scale Friction and Shear: No Apparent Problem- Moves in bed and in chair independently and has sufficient muscle strength to lift up completely during move. Maintains good position in bed or chair at all times (12/30/2016 10:17:Crystal Richard RN) Family Support: Family supportive (12/30/2016 10:17:Crystal Richard RN) Emotional State: Calm/Relaxed (12/30/2016 10:17:Crystal Richard RN) Call Morgan Within Reach: Yes (12/30/2016 10:17:Crystal Richard RN) Side Rails Up: Yes (12/30/2016 10:17:rCystal Richard RN) Bed Wheels Locked: Yes (12/30/2016 10:17:Crystal Richard RN) Arm Bands Present: Yes (12/30/2016 10:17:Crystal Richard RN) Fall Risk History of Falling: (0) No (12/30/2016 10:17:Crystal Richard RN) Fall Risk Secondary Diagnosis: (0) No (12/30/2016 10:17:Crystal Richard RN) Fall Risk Ambulatory Aid: (0) None/Bedrest/Wheelchair/Nurse Assist (12/30/2016 10:17:Crystal Richard RN) Fall Risk IV Therapy: (0) No (12/30/2016 10:17:Crystal Richard RN) Fall Risk Gait: (0) Normal/Bedrest/Immobile (12/30/2016 10:17:Crystal Richard RN) Fall Risk Mental Status: (0) Oriented to Own Ability (12/30/2016 10:17:Crystal Richard RN)
--- NOTE | 2016-12-31 17:58 | L&D Flow Sheet ---
LD Flowsheet Datetime Report Generated by CPN: 12/31/2016 17:58 Datetime: 12/30/2016 10:47 Communication Comments: Pt ambulated off floor in stable condition (Crystal Richard, RN) Datetime: 12/30/2016 10:40 Communication Comments: Reviewed D/C instructions. Reviewed kick counts, labor signs. Pt verbalizes understanding and has no questions (Crystal Richard, RN) Datetime: 12/30/2016 10:39 Communication Comments: Cirilo Shepard CNM at bedside. Prescription for Vistiril given. (Crystal Richard RN) Datetime: 12/30/2016 10:17 Pain Scale: 5 (Crystal Richard RN) Pain Presence: Constant (Crystal Richard RN) Pain Type: Pressure (Crystal Richard RN) Pain Location: Perineum (Crystal Richard RN) Pain Assessment Comments: pt not in any apparent distress (Crystal Richard RN) Vaginal Bleeding: pt had spotting yesterday after being checked at the office (Crystal Richard RN) Level of Consciousness: Fully Conscious (Crystal Richard RN) DTR's/Clonus: DTRs 2+; No Clonus (Crystal Richard, RN) Headache: Denies (Crystal Richard RN) Breath Sounds, Left: Clear and Equal (Crystal Richard RN) Breath Sounds, Right: Clear and Equal (Crystal Richard RN) Nausea/Vomiting: Denies (Crystal Richard RN) RUQ Epigastric Pain: Denies (Crystal Richard RN) Instructional Method: Verbal; Patient Instructed; Family/Support Person Instructed; Verbalized Understanding (Crystal Richard RN) Plan of Care: Plan of Care Discussed (Crystal Richard RN) Datetime: 12/30/2016 10:14 Communication Comments: Report given to Cirilo Shepard CNM. Orders to get reactive NST and D/C home. (Crystal Richard RN) Datetime: 12/30/2016 10:09 Dilatation (cm): 2.0 (Crystal Richard RN) Effacement (%): 70 (Crystal Richard RN) Station: -3 (Crystal Richard RN) Exam by: Zoraida Richard RN (Crystal Richard RN) Datetime: 12/30/2016 10:08 NBP Sys/Kristy/Mean (mmHg): 97 (QS system process) : 57 (QS system process) : 71 (QS system process) Pulse: 106 (QS system process)
--- NOTE | 2016-12-31 17:58 | L&D General Admission ---
General Admit Datetime Report Generated by CPN: 12/31/2016 17:58 Patient Age: 26 (10/13/2016 12:35:QS system process) EDC: 01/01/2017 00:00 (10/13/2016 12:51:ADAM Montoya) LMP: 03/27/2016 00:00 (10/13/2016 12:51:ADAM Montoya) : 5 (10/13/2016 12:51:ADAM Montoya) Para: 1 (10/13/2016 15:42:Crystal Richard RN) Para: 1 (10/13/2016 12:51:ADAM Montoya) Term: 1 (10/13/2016 12:51:Crystal Richard RN) : 0 (10/13/2016 12:51:Crystal Richard RN) Livin (10/13/2016 12:51:Crystal Richard RN) Cesareans: 0 (10/13/2016 12:51:Marivel Nance RN) Baby, Number in Womb: 1 (10/13/2016 15:42:Crystal Richard RN) Primary Turning Machine Operator: [facility] (10/13/2016 12:51:Crystal Richard RN) Turning Machine Operator Other: [facility] (10/13/2016 12:51:Crystal Richard RN) Month of 1st Visit: June (10/13/2016 12:51:Crystal Richard RN) Prepregnancy Weight (lb): 122 (10/13/2016 12:51:Crystal Richard RN) Medication Allergy: No (10/13/2016 12:51:Crystal Richard RN) Medication Allergies: No Known Allergies (12/30/2016) (12/30/2016 10:02:QS system process) Medication Allergies: No Known Allergies (12/26/2016) (12/26/2016 10:08:QS system process) Medication Allergies: No Known Allergies (07/07/2015) (10/13/2016 12:35:QS system process) Latex Allergy: No Latex Allergies (10/13/2016 12:51:Crystla Richard RN) Food Allergies: denies (10/13/2016 12:51:Marivel Nance RN) Environmental Allergies: denies (10/13/2016 12:51:Marivel Nance RN) Primary Language: Northern Irish (10/13/2016 12:51:Crystal Richard RN) Medical Tx Preferred Language: Northern Irish (10/13/2016 12:51:Crystal Richard RN) Address: [address] [place] [id number] (10/13/2016 12:35:QS system process) Zipcode: [phone] (10/13/2016 12:35:QS system process) Home (10/13/2016 12:35:QS system process) SSN: [id number] (10/13/2016 12:35:QS system process) Next of Kin Name: AYAN JIANG (10/13/2016 12:35:QS system process) Next of Kin (10/13/2016 12:35:QS system process) Next of Kin Relationship: MO (10/13/2016 12:35:QS system process) Date of : 1990 (10/13/2016 12:35:QS system process) Marital Status: Single (10/13/2016 12:35:QS system process) Sex: Female (10/13/2016 12:35:QS system process) Race: (10/13/2016 12:35:QS system process) Ethnicity: Non- or (10/13/2016 12:35:QS system process) Restorationist: None (10/13/2016 12:35:QS system process) Alcohol: No (10/13/2016 12:51:Crystal Richard RN) Cigarettes: Former Smoker. [id number] (10/13/2016 12:51:Crystal Richard RN) Marijuana: Yes (10/13/2016 12:51:Crystal Richard RN) Marijuana Comments: early in (10/13/2016 12:51:Crystal Richard RN) Cocaine: No (10/13/2016 12:51:Crystal Richard RN) Other Illicit Drugs: No (10/13/2016 12:51:Crystal Richard RN) Influenza Vaccine: No (10/13/2016 12:51:Crystal Richard RN) Pneumococcal Vaccine: No (10/13/2016 12:51:Crystal Richard RN) Tetanus Vaccine: Uncertain (10/13/2016 12:51:Crystal Richard RN) Tdap Vaccine: Uncertain (10/13/2016 12:51:Crystal Richard RN) Hepatitis B Vaccine: Uncertain (10/13/2016 12:51:Crystal Richard RN) Feeding Preference: Both (10/13/2016 12:51:Crystal Richard RN) Benefit of Breast Feed Discussed: Yes (10/13/2016 12:51:Crystal Richard RN) Circumcision: N/A (10/13/2016 12:51:Crystal Richard RN) Classes Attended: No (10/13/2016 12:51:Crystal Richard RN) Tubal Ligation: Yes (10/13/2016 12:51:Crystal Richard RN) Tubal Authorization Signed: N/A (10/13/2016 12:51:Crystal Richard RN) Consent: N/A (10/13/2016 12:51:Crystal Richard RN) Consent Signed: N/A (10/13/2016 12:51:Crystal Richard RN) Pain Management Plans: Epidural (10/13/2016 12:51:Crystal Richard RN) Plans for Labor and Delivery: None (10/13/2016 12:51:Crystal Richard, ROJELIO) Support Person: Ayan Jiang (10/13/2016 12:51:Crystal Richard RN) Support Person Relationship: Mother (10/13/2016 12:51:Crystal Richard RN) Cultural/Spritual Practice: No (10/13/2016 12:51:Crystal Richard, RN) Spir/Cult Dietary Needs: No (10/13/2016 12:51:Crystal Richard RN) Living Arrangements: House (10/13/2016 12:51:Crystal Richard RN) Adequate Access to:: Electric; Heat; Refrigeration; Plumbing/Running water; Phone; Transportation (10/13/2016 12:51:Crystal Richard RN) WIC Program: Yes (10/13/2016 12:51:Crystal Richard RN) Discharge Video Game Programmer Person: Mother (10/13/2016 12:51:Crystal Richard RN) Person to Help after Discharge: Mother (10/13/2016 12:51:Crystal Richard RN) Currently Using Commun Resources: Yes (10/13/2016 12:51:Crystal Richard RN) Specify Current Resource Used: Food stamps (10/13/2016 12:51:Crystal Richard RN) Outside Agency/Health Promotion Coordinator: No (10/13/2016 12:51:Crystal Richard RN) Car Seat for Discharge: Yes (10/13/2016 12:51:Crystal Richard RN) Adoption Requested: No (10/13/2016 12:51:Crystal Richard RN) Pt Contact w/infant Post : N/A (10/13/2016 12:51:Crystal Richard RN) Blood Type: O Positive (10/13/2016 12:51:Crystal Richard RN) Antibody Screen: negative (10/13/2016 12:51:Crystal Richard RN) Hemoglobin: 13.1 (10/13/2016 14:13:QS system process) Hematocrit: 37.4 (10/13/2016 14:13:QS system process) MCV: 91 (10/13/2016 14:13:QS system process) Group Beta Strep: Negative (10/13/2016 12:51:Marivel Nance RN) Group Beta Strep: negative (10/13/2016 12:51:Crystal Richard RN) Gonorrhea: Negative (10/13/2016 12:51:Marivel Nance RN) Chlamydia: Negative (10/13/2016 12:51:Crystal Richard RN) RPR/VDRL: Nonreactive (10/13/2016 12:51:Crystal Richard RN) HIV Exposure Test: Negative (10/13/2016 12:51:Crystal Richard RN) Hepatitis B: Negative (10/13/2016 12:51:Crystal Richard RN) Rubella: Immune (10/13/2016 12:51:Crystal Richard RN) Varicella: Non Susceptible (10/13/2016 12:51:Crystal Richard RN) LMP: 03/27/2016 00:00 (10/13/2016 12:51:ADAM Montoya) Previous Procedures: Ultrasound; NST (10/13/2016 12:51:Crystal Richard RN) Current Procedures: Ultrasound (10/13/2016 12:51:Crystal Richard RN) History of Previous : No (10/13/2016 12:51:Crystal Richard RN) History of Gestational Diabetes: No (10/13/2016 12:51:Crystal Richard RN) History of PIH: No (10/13/2016 12:51:Crystal Richard RN) History of Incompetent Cervix: No (10/13/2016 12:51:Crystal Richard RN) History of Placenta Previa/Abrup: No (10/13/2016 12:51:Crystal Richard RN) History of Macrosomia: No (10/13/2016 12:51:Crystal Richard RN) History of IUGR: No (10/13/2016 12:51:Crystal Richard RN) History of Hemorrhage: No (10/13/2016 12:51:Crystal Richard RN) History of Loss/Stillborn: No (10/13/2016 12:51:Crystal Richard RN) History of : No (10/13/2016 12:51:Crystal Richard RN) History of D (Rh) Sensitization: No (10/13/2016 12:51:Crystal Richard RN) History Recurrent Loss/Stillborn: No (10/13/2016 12:51:Crystal Richard RN) History Depression/PP Depression: No (10/13/2016 12:51:Crystal Richard RN) History of Uterine Anomaly/DEEPA: No (10/13/2016 12:51:Crystal Richard RN) History of Infertility: No (10/13/2016 12:51:Crystal Richard RN) History of ART Treatment: No (10/13/2016 12:51:Crystal Richard RN) History of DEEPA: No (10/13/2016 12:51:Crystal Richard, RN) Comments Obstetrical History: G1: 2007, , no complications G2: SAB 2008 G3: EAB 2014 G4: current (10/13/2016 12:51:Crystal Richard RN) Med Hx Diabetes: No (10/13/2016 12:51:Crystal Richard RN) Med Hx Hypertension: No (10/13/2016 12:51:Crystal Richard RN) Med Hx Heart Disease: No (10/13/2016 12:51:Crystal Richard RN) Med Hx Autoimmune Disorder: No (10/13/2016 12:51:Crystal Richard RN) Med Hx Kidney Disease/UTI: No (10/13/2016 12:51:Crystal Richard RN) Med Hx Neurologic/Epilepsy: No (10/13/2016 12:51:Crystal Richard RN) Med Hx Psychiatric Disorders: Yes (10/13/2016 12:51:Crystal Richard RN) Med Hx Hepatitis/Liver Disease: No (10/13/2016 12:51:Crystal Richard RN) Med Hx Varicosities/Phlebitis: No (10/13/2016 12:51:Crystal Richard RN) Med Hx Thyroid Dysfunction: No (10/13/2016 12:51:Crystal Richard RN) Med Hx Trauma/Violence: No (10/13/2016 12:51:Crystal Richard RN) Med Hx Blood Transfusion: No (10/13/2016 12:51:Crystal Richard RN) Med Hx Pulmonary (Asthma,TB): No (10/13/2016 12:51:Crystal Richard RN) Med Hx Breast: No (10/13/2016 12:51:Crytsal Richard RN) Med Hx TAPE COATER Surgery: No (10/13/2016 12:51:Crystal Richard, RN) Med Hx Hospitalization/Surgery: Yes (10/13/2016 12:51:Crystal Richard RN) Med Hx Anesthetic Complications: No (10/13/2016 12:51:Crystal Richard RN) Med Hx Abnormal Pap Smear: Yes (10/13/2016 12:51:Crystal Richard RN) Other Medical Diseases: No (10/13/2016 12:51:Crystal Richard RN) Med Hx Significant Family Hx: No (10/13/2016 12:51:Crystal Richard RN) Details of Med/Surg Hx: Pt states she feels like she will have PP depression - pregancy not planned and pt constantly emotional, multiple abnl paps, chronic BV (10/13/2016 12:51:Crystal Richard RN) Inf Hx Gonorrhea: No (10/13/2016 12:51:Crystal Richard RN) Inf Hx Chlamydia: No (10/13/2016 12:51:Crystal Richard RN) Inf Hx Syphilis: No (10/13/2016 12:51:Crystal Richard RN) Inf Hx HIV/AIDS: No (10/13/2016 12:51:Crystal Richard RN) Inf Hx Human Papilloma Virus: No (10/13/2016 12:51:Crystal Richard RN) Inf Hx Pt/Partner Genital Herpes: No (10/13/2016 12:51:Crystal Richard RN) Inf Hx Tuberculosis/Exposure: No (10/13/2016 12:51:Crystal Richard RN) Inf Hx Hepatitis B,C: No (10/13/2016 12:51:Crystal Richard RN) Inf Hx Rash or Viral Illness: No (10/13/2016 12:51:Crystal Richard RN) Gen Hx Age >=35 at RUDY: No (10/13/2016 12:51:Crystal Richard RN) Gen Hx Thalassemia: No (10/13/2016 12:51:Crystal Richard RN) Gen Hx Congenital Heart Defect: No (10/13/2016 12:51:Crystal Richard RN) Gen Hx Neural Tube Defect: No (10/13/2016 12:51:Crystal Richard RN) Gen Hx Down's Syndrome: No (10/13/2016 12:51:Crystal Richard RN) Gen Hx Jose-Sachs: No (10/13/2016 12:51:Crystal Richard RN) Gen Hx Froylan: No (10/13/2016 12:51:Crystal Richard RN) Gen Hx Familial Dysautonomia: No (10/13/2016 12:51:Crystal Richard RN) Gen Hx Sickle Cell Disease/Trait: No (10/13/2016 12:51:Crystal Richard RN) Gen Hx Hemophilia/Blood Disorder: No (10/13/2016 12:51:Crystal Richard RN) Gen Hx Muscular Dystrophy: No (10/13/2016 12:51:Crystal Richard RN) Gen Hx Cystic Fibrosis: No (10/13/2016 12:51:Crystal Richard RN) Gen Hx Huntingtons Chorea: No (10/13/2016 12:51:Crystal Richard RN) Gen Hx Mental Retardation/Autism: No (10/13/2016 12:51:Crystal Richard RN) Gen Hx Tested for Fragile X: No (10/13/2016 12:51:Crystal Richard RN) Gen Hx Other Inher/Chromosomal: No (10/13/2016 12:51:Crystal Richard RN) Gen Hx Maternal Metabolic DO: No (10/13/2016 12:51:Crystal Richard RN) Gen Hx Pt Father or FOB Defect: No (10/13/2016 12:51:Crystal Richard RN) Gen Hx Other Genetic History: No (10/13/2016 12:51:Crystal Richard RN) Gen Hx Drugs/Meds since LMP: Yes (10/13/2016 12:51:Crystal Richard RN) Gen Hx Medications: PNV, Flagyl, vaginal cream (10/13/2016 12:51:Crystal Richard RN)
--- NOTE | 2016-12-31 17:59 | L&D Discharge Summary ---
OB Discharge Summary Datetime Report Generated by CPN: 12/31/2016 17:59 DISCHARGE DIAGNOSIS Diagnosis/Symptoms: False Labor Diagnoses/Symptoms Other: not ruptured; false labor Gestation: 39.5 Number of Babies in Womb: 1 Parity: 1 DIET/ACTIVITY/RESTRICTIONS Diet: Regular Activity: Normal Activity TEACHING/INSTRUCTIONS/REFERRALS Instructions Given To: Patient/Family Instructions Understood: Patient Verbalized Understanding; Support Person Verbalized Understanding Referrals: None Educational Materials- Other: kick counts, labor signs DISCHARGE INFORMATION Discharged AMA: No Discharge Date/Time: 12/30/2016 10:47 Discharged To: Home Discharge Provider Name: Cirilo Shepard CNM Accompanied By: mother Discharge Method: Ambulatory Condition: Stable FOLLOW UP INFORMATION Follow Up With: [facility] Follow Up On: As Scheduled Follow Up Phone Number: [facility] - Comments: Provider aware of pain level GENERAL INSTR-CALL PROVIDER IF: Contractions: Contractions or cramps become more frequent than 8 in one hour or 4 in 20 minutes; Regular painful contractions every 5 minutes or less for one hour. Time your contractions from the beginning of one to the beginning of the next Pressure: Pressure in your vagina or lower abdomen that may feel like the baby is pushing down Period Like Cramps: Period-like cramps or low dull backache that may come and go Cramps/Diarrhea: Abdominal cramps that may be accompanied by diarrhea Gush of Fluid/Blood: Gush of fluid or blood from your vagina (it is normal to have spotting after vaginal exam or intercourse) Vaginal Discharge: Change in the type or amount of vaginal discharge Decreased Movement: Your baby is not moving as much as usual- 4 movements in 1 hour after drinking and resting on side Temperature: Temperature greater than 100.0(F) orally
== END 2016-12-30 10:47 | disposition home or self-care (01) ==
LOC: LC 09:50
PROVIDERS: ATTEND Obstetrics & Gynecology
PROC: 4A1HXCZ Monitoring of Products of Conception, Cardiac Rate, External Approach (ICD-10-PCS; principal; 2016-12-30)
DX: O47.1 False labor at or after 37 completed weeks of gestation (principal); Z3A.39 39 weeks gestation of pregnancy
CPT/HCPCS: 59025; 80307; 81005

== ENCOUNTER 2017-01-01 03:56 | Outpatient (CLI) | payer MEDICAID ==
[2017-01-01 04:42] LABS: APPEARANCE,URINE CLOUDY; BILIRUBIN,URINE NEGATIVE (NEGATIVE); GLUCOSE, URINE NEGATIVE (NEGATIVE); KETONES,URINE NEGATIVE (NEGATIVE); LEUKOCYTE ESTERASE,URINE LARGE (NEGATIVE); NITRITE,URINE NEGATIVE (NEGATIVE); PROTEIN,URINE NEGATIVE (NEGATIVE); UROBILINOGEN,URINE NEGATIVE mg/dL (<2.0)
[2017-01-01 04:57] LABS: URINE BARBITURATES SCREEN NEGATIVE; URINE METHADONE SCREEN NEGATIVE; URINE OPIATES LOW NEGATIVE; URINE PHENCYCLIDINE SCREEN NEGATIVE
[2017-01-01] MEDS ORDERED: HYDROXYZINE PAMOATE 50 MG CAPSULE PO ONE (05:58)
[2017-01-01] MEDS ORDERED: OXYCODONE-ACETAMINOPHEN 5-325 MG TABLET PO ONE (05:58)
[2017-01-01] MEDS ORDERED: HYDROXYZINE PAMOATE 50 MG CAPSULE ONE (06:02)
[2017-01-01] MEDS ORDERED: OXYCODONE-ACETAMINOPHEN 5-325 MG TABLET ONE (06:03)
== END 2017-01-01 06:15 | disposition home or self-care (01) ==
LOC: LC 03:56
PROVIDERS: ATTEND Obstetrics & Gynecology
PROC: 4A1HXCZ Monitoring of Products of Conception, Cardiac Rate, External Approach (ICD-10-PCS; principal; 2017-01-01)
DX: O47.1 False labor at or after 37 completed weeks of gestation (principal); Z3A.40 40 weeks gestation of pregnancy
CPT/HCPCS: 59025; 81005; 80307; J3490

== ENCOUNTER 2017-01-05 14:48 | Inpatient (IN) | payer MEDICAID ==
[2017-01-05] MEDS ORDERED: OXYTOCIN/NORMAL SALINE 1,000 ML IV PRN ×2 (14:49→23:44)
[2017-01-05] MEDS ORDERED: RINGERS SOLUTION,LACTATED 1,000 ML IV PRN (14:49)
[2017-01-05] MEDS ORDERED: RINGERS SOLUTION,LACTATED 1,000 ML IV ONE (14:49)
[2017-01-05 15:30] LABS: APPEARANCE,URINE CLOUDY; BILIRUBIN,URINE NEGATIVE (NEGATIVE); GLUCOSE, URINE NEGATIVE (NEGATIVE); KETONES,URINE NEGATIVE (NEGATIVE); LEUKOCYTE ESTERASE,URINE MODERATE (NEGATIVE); NITRITE,URINE NEGATIVE (NEGATIVE); PROTEIN,URINE NEGATIVE (NEGATIVE); URINE SPECIFIC GRAVITY 1.006; UROBILINOGEN,URINE NEGATIVE mg/dL (<2.0)
[2017-01-05 15:48] LABS: URINE BARBITURATES SCREEN NEGATIVE; URINE METHADONE SCREEN NEGATIVE; URINE OPIATES LOW NEGATIVE; URINE PHENCYCLIDINE SCREEN NEGATIVE
[2017-01-05] MEDS ORDERED: OXYTOCIN/NORMAL SALINE 0 UNIT/0 ML RTUINJ ONE (15:53)
[2017-01-05 16:09] LABS: ABSOLUTE EOSINOPHILS # (AUTO) 0.1 10^3/uL (0.0-0.6); ABSOLUTE LYMPHOCYTES (AUTO) 1.9 10^3/uL (0.5-4.7); ABSOLUTE MONOCYTES (AUTO) 0.4 10^3/uL (0.1-1.4); ABSOLUTE NEUT (AUTO) 5.7 10^3/uL (1.7-8.2); BASOPHILS % (AUTO) 0.6 % (0-2); EOSINOPHILS % (AUTO) 1.1 % (0-6); HEMATOCRIT 36.4 % (36.0-47.0); HEMOGLOBIN 12.8 g/dL (12.0-15.5); LYMPHOCYTES % (AUTO) 23.2 % (13-45); MEAN CORPUSCULAR HEMOGLOBIN 30.3 pg (27.0-33.4); MEAN CORPUSCULAR VOLUME 87 fl (80-97); MONOCYTES % (AUTO) 4.4 % (3-13); RED BLOOD COUNT 4.21 10^6/uL (3.72-5.28); SEGMENTED NEUTROPHILS % (AUTO) 70.7 % (42-78); WHITE BLOOD COUNT 8.1 10^3/uL (4.0-10.5)
--- NOTE | 2017-01-05 17:07 | L&D Progress Notes ---
PROGRESS NOTES Datetime Report Generated by CPN: 01/05/2017 17:07 PROGRESS NOTE Impression: Reassuring Heart Rate Procedures: Artificial ROM Plan: Continue Present Management Informed Consent Obtained: Induction of Labor Vital Signs : Reviewed Comment: AROM, mec/bloody fluid Continue pitocin May have epdiural prn VAGINAL EXAM Dilatation: 4 Dilatation: 3 Effacement: 90 Effacement: 90 Station: -1 Station: -1 Contractions: irregular MEMBRANES Membranes: Ruptured Membranes: Intact Amniotic Fluid Color: Bloody FETUS A FHR - Baseline: 150 Monitoring: External US Variability: Moderate 6-25bpm Accelerations: 15X15 Decelerations: None FHR Category: Category I Estimated Weight (gm): 3800 Presentation: Vertex SIGNATURE SIGNATURE: ,[id number];,[id number] SIGNATURE: ,[id number] SIGNATURE: ,[id number] Assignment: Ching Osborne MD Signature: with User ID: [email or web address] : with User ID: [email or web address]
[2017-01-05] MEDS ORDERED: EPHEDRINE SULFATE INJ 50 MG/1 ML AMPULE ONE (17:48)
[2017-01-05] MEDS ORDERED: BUPIVACAINE HCL 0.25 % INJ/PF (2.5 MG/1 ML) 30 ML VIAL ONE ×2 (17:49→19:42)
[2017-01-05] MEDS ORDERED: FENTANYL/BUPIVACAINE/NS/PF 0 MCG/0 ML RTUINJ EPI ONE (17:49)
[2017-01-05] MEDS ORDERED: FAMOTIDINE 20 MG TABLET ONE (19:30)
[2017-01-05] MEDS ORDERED: FENTANYL/BUPIVACAINE/NS/PF 200 MCG/100 ML RTUINJ EPI ONE (19:42)
[2017-01-05] MEDS ORDERED: FAMOTIDINE 20 MG TABLET PO ONE (20:30)
[2017-01-05] MEDS ORDERED: LIDOCAINE 1% INJ-PF (10 MG/ML) 30 ML SDV ONE (23:19)
[2017-01-05] MEDS ORDERED: MISOPROSTOL 0.2 MG TABLET ONE (23:19)
[2017-01-05] MEDS ORDERED: OXYTOCIN/NORMAL SALINE 20 UNIT/1,000 ML RTUINJ ONE (23:19)
[2017-01-05] MEDS ORDERED: ACETAMINOPHEN WITH CODEINE #3 TABLET PO PRN ×2 (23:44)
[2017-01-05] MEDS ORDERED: MEASLES,MUMPS&RUBELLA VACC/PF 0.5 ML VIAL SUBCUT PRN (23:44)
[2017-01-05] MEDS ORDERED: ZOLPIDEM TARTRATE 5 MG TABLET PO PRN (23:44)
[2017-01-05] MEDS ORDERED: BENZOCAINE/MENTHOL AEROSOL SPRAY 56 ML TOP PRN (23:44)
[2017-01-05] MEDS ORDERED: DIBUCAINE 1% OINTMENT 28 GM TP PRN (23:44)
[2017-01-05] MEDS ORDERED: DIPH/PERTUSS(ACELL)/TETANUS VAC/PF 0.5 ML SYR (>=10YO) IM PRN (23:44)
--- NOTE | 2017-01-06 00:59 | Delivery Summary ---
Del Sum A-C Datetime Report Generated by CPN: 01/06/2017 00:58 DELIVERY PERSONNEL DELIVERY PERSONNEL: [id number] Delivery Doctor:: Ching Osborne MD Labor and Delivery Nurse:: Ching Styles RN Nursery Nurse:: Crystal Santana RN Nursery Nurse:: Itzel Schwartz RN Middle School Guidance Counselor/REMOTE SENSING TECHNOLOGIST: Ady Anderson, REMOTE SENSING TECHNOLOGIST MATERNAL INFORMATION Delivery Anesthesia: Epidural Medications After Delivery: Pitocin Drip 20 Units/1000ml NSS Estimated Blood Loss (ml): 300 Maternal Complications: None Provider Comments: Head delivered OA. Shoulders and body delivered easily. SPINNING BATH PERSON and OP bulb suctioned. Cord clamped and cut. Placenta spont and intact. Female with apgars 9 and 9. Mom and baby ding well. LABOR SUMMARY EDC: 01/01/2017 00:00 No. Babies in Womb: 1 Attempted: No Labor Anesthesia: Epidural LABOR INFORMATION Reason for Induction: Oligohydramnios Onset of Labor: 01/05/2017 17:00 Complete Dilatation: 01/05/2017 23:15 Oxytocin: Induction Group B Beta Strep: Negative Antibiotics # of Doses: 0 Steroids Given: None Reason Steroids Not Administered: Not Applicable MEMBRANES Membranes Rupture Method: Artificial Rupture of Membranes: 01/05/2017 17:00 Length of Rupture (hr): 6.52 Amniotic Fluid Color: Bloody Amniotic Fluid Amount: Moderate Amniotic Fluid Odor: Normal STAGES OF LABOR Stage 1 hr: 6 Stage 1 min: 15 Stage 2 hr: 0 Stage 2 min: 16 Stage 3 hr: 0 Stage 3 min: 3 Total Time in Labor hr: 6 Total Time in Labor min: 34 VAGINAL DELIVERY Episiotomy: None Laceration Extension: First Degree Laceration Type: Perineal Laceration Repair: Yes Laceration Repair Note: 3-0 chromic Sponge Count Correct: N/A Sharps Count Correct: Yes CSECTION DELIVERY Primary Indication: N/A Secondary Indication: N/A CSection Incidence: N/A Labor: N/A Elective: N/A CSection Incision: N/A BABY A INFORMATION Delivery Date/Time: 01/05/2017 23:31 Method of Delivery: Vaginal Born in Route : No : N/A Forceps: N/A Vacuum Extraction: N/A Shoulder Dystocia : No PRESENTATION/POSITION BABY A Presentation: Cephalic Cephalic Presentation: Vertex Breech Presentation: N/A PLACENTA INFORMATION BABY A Placenta Delivery Time : 01/05/2017 23:34 Placenta Method of Delivery: Spontaneous Placenta Status: Delivered SCORES BABY A Heart Rate 1 min: >100 bpm Resp Effort 1 min: Good Cry Reflex Irritability 1 min: Cough or Sneeze or Pulls Away Muscle Tone 1 min: Active Motion Color 1 min: Body [place], Extremities Blue Resuscitation Effort 1 min: Tactile Stimulation SCORE 1 MIN: 9 Heart Rate 5 min: >100 bpm Resp Effort 5 min: Good Cry Reflex Irritability 5 min: Cough or Sneeze or Pulls Away Muscle Tone 5 min: Active Motion Color 5 min: Body [place], Extremities Blue Resuscitation Effort 5 min: Tactile Stimulation SCORE 5 MIN: 9 INFANT INFORMATION BABY A Gestational Age at Delivery: 40.4 Gestational Status: Full Term- 39- 40.6 Weeks Outcome : Liveborn Infant Condition : Stable Infant Sex: Female IDENTIFICATION BABY A Infant Verification Date/Time: 01/05/2017 23:35 ID Band Number: [id number] Mother's Name Verified: Yes RN Verifying Infant: R Kim, RNC Additional Verifying Personnel: D Nancy, US WEIGHT/LENGTH BABY A Birthweight (gm): 3660 Infant Weight (lb): 8 Infant Weight (oz): 1 Length (in): 19.50 Length (cm): 49.53 CORD INFORMATION BABY A No. Cord Vessels: 3 Nuchal Cord : N/A Cord Blood Taken: Yes-For Eval (Mom's Blood Type - or O+) Suction: Mouth; Nose ASSESSMENT BABY A Infant Complications: Meconium Physical Findings at Delivery: Within Normal Limits Respirations: Appears Normal Skin to Skin: Yes Skin to Skin Time (min): 35 Activities Manager/ALS Called : No Care By: Zoraida MaxROJELIO Transferred To: Remains with Mother BABY B INFORMATION : N/A SIGNATURES Signature: with User ID: [email or web address]
[2017-01-06] MEDS: IBUPROFEN 800 MG TABLET PO SCH ×3 (05:19→21:31)
[2017-01-06 08:35] LABS: HEMATOCRIT 35.6 % (36.0-47.0); HEMOGLOBIN 12.3 g/dL (12.0-15.5); HGB HCT DIFFERENCE 1.3; MEAN CORPUSCULAR HEMOGLOBIN 29.8 pg (27.0-33.4); MEAN CORPUSCULAR HGB CONC 34.6 g/dL (32.0-36.0); MEAN CORPUSCULAR VOLUME 86 fl (80-97); RED BLOOD COUNT 4.14 10^6/uL (3.72-5.28); RED CELL DISTRIBUTION WIDTH 13.9 % (11.5-14.0); WHITE BLOOD COUNT 13.1 10^3/uL (4.0-10.5)
[2017-01-06] MEDS: PRENATAL VITAMIN W-O CA NO5/FE FUMARATE/FA CAPSULE PO SCH (09:46)
[2017-01-06] MEDS: FERROUS SULFATE 325 MG TABLET PO SCH ×2 (09:46→18:45)
[2017-01-06] MEDS: DOCUSATE SODIUM 100 MG CAPSULE PO SCH ×2 (09:46→18:45)
[2017-01-06] MEDS: SENNOSIDES/DOCUSATE 8.6-50 MG 1 EACH TABLET PO SCH (09:47)
--- NOTE | 2017-01-06 11:00 | PDOC PROGRESS REPORT ---
Subjective-OB Subjective: Post Delivery Day: 26 year old. Denies any needs at this time s/p vaginal delivery sitting up doing well without difficulty ff@u-1 mod lochia no clots no complaints anticipate d/c in Am Physical Exam (OB) Vital Signs: Temp Pulse Resp BP Pulse Ox 98.2 F 85 16 119/76 99 01/06/17 08:00 01/06/17 08:00 01/06/17 08:00 01/06/17 08:00 01/06/17 08:00 Intake & Output 01/05/17 01/06/17 01/07/17 06:59 06:59 06:59 Intake Total 310 Balance 310 Weight 77.3 kg - PIH/Pre-Eclampsia Headache: Absent Epigastric Pain: No Visual Changes: No - Lochia Lochia Amount: Scant < 10 ml Lochia Color: Rubra/Red - Abdomen Description: Tender, Soft Hernia Present: No Fundal Description: Firm, Midline Fundal Height: u/u - u/2 Objective-Diagnostic Laboratory: 01/06/17 07:42 01/05/17 01/05/17 01/05/17 15:02 15:51 15:51 WBC 8.1 RBC 4.21 Hgb 12.8 Hct 36.4 MCV 87 MCH 30.3 MCHC 35.0 RDW 14.0 Plt Count 154 Seg Neutrophils % 70.7 Lymphocytes % 23.2 Monocytes % 4.4 Eosinophils % 1.1 Basophils % 0.6 Absolute Neutrophils 5.7 Absolute Lymphocytes 1.9 Absolute Monocytes 0.4 Absolute Eosinophils 0.1 Absolute Basophils 0.0 Urine Color YELLOW Urine Appearance CLOUDY Urine pH 7.0 Ur Specific [place] 1.006 Urine Protein NEGATIVE Urine Glucose (UA) NEGATIVE Urine Ketones NEGATIVE Urine Blood NEGATIVE Urine Nitrite NEGATIVE Ur Leukocyte Esterase MODERATE H Blood Type O POSITIVE Antibody Screen NEGATIVE 01/06/17 07:42 WBC 13.1 H RBC 4.14 Hgb 12.3 Hct 35.6 L MCV 86 MCH 29.8 MCHC 34.6 RDW 13.9 Plt Count 151 Seg Neutrophils % Lymphocytes % Monocytes % Eosinophils % Basophils % Absolute Neutrophils Absolute Lymphocytes Absolute Monocytes Absolute Eosinophils Absolute Basophils Urine Color Urine Appearance Urine pH Ur Specific [place] Urine Protein Urine Glucose (UA) Urine Ketones Urine Blood Urine Nitrite Ur Leukocyte Esterase Blood Type Antibody Screen
[2017-01-07] MEDS: IBUPROFEN 800 MG TABLET PO SCH (06:14)
[2017-01-07 09:11] VITALS: BP 111/75
--- NOTE | 2017-01-07 09:29 | PDOC PROGRESS REPORT ---
Subjective-OB Subjective: Post Delivery Day: 26 year old. Denies any needs at this time Doing well, family and baby at BS, no c.o, breast feeding, lochia scant Physical Exam (OB) Vital Signs: Temp Pulse Resp BP Pulse Ox 98.4 F 61 16 111/75 96 01/07/17 08:24 01/07/17 08:24 01/07/17 08:24 01/07/17 08:24 01/07/17 08:24 Intake & Output 01/06/17 01/07/17 01/08/17 06:59 06:59 06:59 Intake Total 310 Balance 310 Weight 77.3 kg - PIH/Pre-Eclampsia Headache: Absent Epigastric Pain: No Visual Changes: No - Lochia Lochia Amount: Small 10-25 ml Lochia Color: Rubra/Red - Abdomen Description: Soft, Round Hernia Present: No Fundal Description: Firm, Midline Fundal Height: u/u - u/2 Objective-Diagnostic Laboratory: 01/06/17 07:42 Assessment and Plan(PN) - Assessment and Plan (1) Delivery normal Is this a current diagnosis for this admission?: Yes (2) Oligohydramnios Qualifiers: Fetus number: single or unspecified fetus Is this a current diagnosis for this admission?: Yes - Time Spent with Patient Time with patient: Less than 15 minutes Smoking Education Provided: Over 3 minutes Medications reviewed and adjusted accordingly: Yes - Disposition Anticipated Discharge: Home Within: within 24 hours - home today
--- NOTE | 2017-01-07 09:33 | PDOC DISCHARGE SUMMARY ---
Final Diagnosis Discharge Date: 01/07/17 - Final Diagnosis (1) Delivery normal Is this a current diagnosis for this admission?: Yes Discharge Data - Discharge Medication Home Medications: Vit #76/Iron,Carb/FA [Prenatabs Rx Tablet] 1 tab PO DAILY 10/13/16 Gestational Age: 40.4 Reason(s) for Admission: Induction of Labor, Obstetric Complications Admission Note: oligohydramnious Procedures: NST, Ultrasound Intrapartum Procedure(s): Spontaneous Vaginal Delivery Complication(s): Laceration-Perineal Laceration-Degree: 1st - Data Baby 1 Female at 1 minute: 9 at 5 minutes: 9 Weight: 3.657 kg Home with Mother: Yes Complications: No - Diagnosis Test Laboratory: Temp Pulse Resp BP Pulse Ox 98.4 F 61 16 111/75 96 01/07/17 08:24 01/07/17 08:24 01/07/17 08:24 01/07/17 08:24 01/07/17 08:24 01/05/17 01/05/17 01/06/17 15:02 15:51 07:42 RBC 4.21 4.14 Hgb 12.8 12.3 Hct 36.4 35.6 L Urine Opiates Screen NEGATIVE - Discharge information/Instructions Discharge Activity: Activity As Tolerated, Pelvic Rest, No tub bath Discharge Diet: As Tolerated, Regular Disposition: HOME, SELF-CARE Follow up with: [facility] in: 4, Weeks
[2017-01-07] MEDS: SENNOSIDES/DOCUSATE 8.6-50 MG 1 EACH TABLET PO SCH (09:51)
[2017-01-07] MEDS: FERROUS SULFATE 325 MG TABLET PO SCH (09:51)
[2017-01-07] MEDS: DOCUSATE SODIUM 100 MG CAPSULE PO SCH (09:51)
[2017-01-07] MEDS: PRENATAL VITAMIN W-O CA NO5/FE FUMARATE/FA CAPSULE PO SCH (09:54)
--- NOTE | 2017-01-11 23:42 | Admission Physical ---
Datetime Report Generated by CPN: 01/11/2017 23:41 CURRENT ADMISSION Hx Assessment: The History has been Reviewed and is Current Chief Complaint: Other Chief Complaint Other: oligo in the office Indication for Induction: Oligohydramnios Admit Plan: Admit to Unit; Initiate Labor Induction Protocol ALLERGIES Medication Allergies: No Medication Allergies: No Known Allergies (01/05/2017) Medication Allergies: No Known Allergies (01/01/2017) Medication Allergies: No Known Allergies (12/30/2016) Medication Allergies: No Known Allergies (12/26/2016) Medication Allergies: No Known Allergies (07/07/2015) Latex: No Latex Allergies Food Allergies: denies Environmental Allergies: denies OBSTETRICAL HISTORY EDC: 01/01/2017 00:00 : 5 Para: 1 Para: 1 Term: 1 : 0 SAB: 3 IAB: 0 Ectopic: 0 Livin Cesareans: 0 VBACs: 0 Multiple Births: 0 Gestational Diabetes: No Rh Sensitization: No Incompetent Cervix: No DEEPA: No Infertility: No ART Treatment: No Uterine Anomaly: No IUGR: No Hx Previous C/S: No Macrosomia: No Hx Loss/Stillborn: No PIH: No Hx : No Placenta Previa/Abruption: No Depression/PP Depression: No PTL/PROM: No Post Hemorrhage: No Current Procedures: Ultrasound; NST Obstetrical History Comments: G1: 2006, , no complications G2: SAB 2007 G3: EAB 2013 G4: current SEE RECORDS Alcohol: No Marijuana : Yes Marijuana Comments: early in Cocaine: No Other Illicit Drugs: No Cigarettes: Former Smoker. [id number] MEDICAL HISTORY Diabetes: No Blood Transfusion: No Pulmonary Disease (Asthma, TB): No Breast Disease: No Hypertension: No Underwater Trapper Surgery: No Heart Disease: No Hosp/Surgery: Yes Autoimmune Disorder: No Anesthetic Complications: No Kidney Disease: No Abnormal Pap Smear: Yes Neuro/Epilepsy: No Psychiatric Disorders: Yes Other Medical Diseases: No Hepatitis/Liver Disease: No Significant Family History: No Varicosities/Phlebitis: No Trauma/Violence : No Thyroid Dysfunction: No Medical History Comments: Pt states she feels like she will have PP depression - pregancy not planned and pt constantly emotional, multiple abnl paps, chronic BV INFECTIOUS HISTORY Gonorrhea: No Genital Herpes: No Chlamydia: No Tuberculosis: No Syphilis: No Hepatitis: No HIV/AIDS Exposure: No Rash or Viral Illness: No HPV: No PHYSICAL EXAM General: Normal HEENT: Normal Neurologic: Normal Thyroid: Normal Heart: Normal Lungs: Normal Breast: Normal Back: Normal Abdomen: Normal Genitourinary Exam: Normal Extremities: Normal DTRs: Normal Pelvic Type: Adequate Physical Exam Comments: proven 8+ lbs Vital Signs: Reviewed VAGINAL EXAM Dilatation: 4 Dilatation: 3 Effacement: 90 Effacement: 90 Station: -1 Station: -1 Contraction Comments: irregular MEMBRANES Membranes: Ruptured Membranes: Intact Amniotic Fluid Color: Bloody FETUS A EGA: 40.4 Monitoring: External US FHR- Baseline: 150 Variability: Moderate 6-25bpm Accelerations: 15X15 Decelerations: None FHR Category: Category I Estimated Weight (gm): 3800 Presentation: Vertex Admit Comment: Pt direct admit from office, francisco j: 2, pt denies lof, vb, states active fetus, denies ctx. See record for complete hx Admit to L _ D Pitocin per protocol Pt may have epdidural prn Anticipate PLANS FOR LABOR AND DELIVERY Labor and Delivery: Placenta Request Pain Management: Epidural Feeding Preference: Breast Benefit of Breast Feed Discussed: Yes Circumcision: N/A INFORMED CONSENT Informed Consent Obtained: Induction of Labor Assignment: Ching Osborne MD Signature: with User ID: [email or web address] : with User ID: [email or web address]
== END 2017-01-07 11:20 | disposition home or self-care (01) | DRG 775 ==
LOC: LR 14:48 → 2S 01-06 02:47
PROVIDERS: ADMIT Specialist; ATTEND Specialist
PROC: 10E0XZZ Delivery of Products of Conception, External Approach (ICD-10-PCS; principal; 2017-01-05)
PROC: 0HQ9XZZ Repair Perineum Skin, External Approach (ICD-10-PCS; 2017-01-05)
PROC: 4A1HXCZ Monitoring of Products of Conception, Cardiac Rate, External Approach (ICD-10-PCS; 2017-01-05)
DX: O41.03X0 Oligohydramnios, third trimester, not applicable or unspecified (principal); O77.0 Labor and delivery complicated by meconium in amniotic fluid; O70.0 First degree perineal laceration during delivery; Z3A.40 40 weeks gestation of pregnancy; Z37.0 Single live birth; Z87.891 Personal history of nicotine dependence
CPT/HCPCS: 36415; 80307; 81005; 85025; 85027; 86592; 86850; 86900; 86901; 88307; J2590; J3490

== ENCOUNTER 2018-09-18 15:23 | Emergency (ER) | payer MEDICAID ==
[2018-09-18 15:28] VITALS: BP 114/80
[2018-09-18] MEDS ORDERED: PSEUDOEPHEDRINE HCL 30 MG TABLET PO ONE (15:53)
[2018-09-18] MEDS ORDERED: LORATADINE 10 MG TABLET PO ONE (15:53)
[2018-09-18] MEDS ORDERED: GUAIFENESIN 600 MG TABLET.SA PO ONE (15:53)
--- NOTE | 2018-09-18 15:59 | ER Document Report ---
ED ENT - General Chief Complaint: Ear Pain Stated Complaint: EAR PAIN Time Seen by Provider: 09/18/18 15:43 Mode of Arrival: Ambulatory Information source: Patient Notes: 28-year-old female presents to ED for cough cold congestion sore throat and right ear pain. She states it started yesterday. She denies any fevers. She does smokes 3 cigarettes a day. Patient is alert and oriented respirations regular and unlabored speaking in full sentences walking with a even steady gait. TRAVEL OUTSIDE OF THE [place] IN LAST 30 DAYS: No - HPI Patient complains to provider of: Ear problem, Nose problem, Throat problem Onset: Yesterday Onset/Duration: Gradual Quality of pain: Sharp Severity: Severe Pain Level: 5 Context: Recent Illness Location of pain: Ears, Nose, Sinus, Throat Associated symptoms: Congestion, Cough, Ear pain - Right, Runny nose, Sinus pain, Sinus drainage, Sore throat Similar symptoms previously: Yes Recently seen / treated by doctor: No - Related Data Allergies/Adverse Reactions: No Known Allergies Allergy (Verified 09/18/18 15:23) Past Medical History - General Information source: Patient - Social History Smoking Status: Current Every Day Smoker Cigarette use (# per day): Yes - 3 cigarettes a day Chew tobacco use (# tins/day): No Smoking Education Provided: Yes - 4 minutes Frequency of alcohol use: Rare Drug Abuse: None Occupation: Student Lives with: Parents Family History: Hypertension. denies: Arthritis, CAD, COPD, CVA, DM, Hyperlipidemia, Malignancy, Thyroid Disfunction Patient has suicidal ideation: No Patient has homicidal ideation: No - Past Medical History Cardiac Medical History: Reports: None Pulmonary Medical History: Reports: None EENT Medical History: Reports: None Endocrine Medical History: Reports: None Renal/ Medical History: Reports: None Malignancy Medical History: Reports: None GI Medical History: Reports: None Musculoskeletal Medical History: Reports None Skin Medical History: Reports None Psychiatric Medical History: Reports: None Traumatic Medical History: Reports: None Infectious Medical History: Reports: None Surgical Hx: Negative Past Surgical History: Reports: None - Immunizations Hx Diphtheria, Pertussis, Tetanus Vaccination: Yes Review of Systems - Review of Systems Constitutional: Recent illness EENT: Ear pain, Nose congestion, Nose discharge, Sinus pressure, Sinus discharge, Throat pain Cardiovascular: No symptoms reported Respiratory: Cough Gastrointestinal: No symptoms reported Genitourinary: No symptoms reported Female Genitourinary: No symptoms reported Musculoskeletal: No symptoms reported Skin: No symptoms reported Hematologic/Lymphatic: No symptoms reported Neurological/Psychological: No symptoms reported -: Yes All other systems reviewed and negative Physical Exam - Vital signs Vitals: Temp Pulse Resp BP Pulse Ox 99.2 F 102 H 16 114/80 97 09/18/18 15:27 09/18/18 15:27 09/18/18 15:27 09/18/18 15:27 09/18/18 15:27 Interpretation: Normal - General General appearance: Appears well, Alert - HEENT Head: Normocephalic, Atraumatic Eyes: Normal Pupils: PERRL Ears: Normal External canal: Normal Tympanic membrane: Normal Sinus: Normal Nasal: Purulent discharge, Swelling Mouth/Lips: Normal Mucous membranes: Normal Pharynx: Post nasal drainage Neck: Normal - Respiratory Respiratory status: No respiratory distress Chest status: Nontender Breath sounds: Normal Chest palpation: Normal - Cardiovascular Rhythm: Regular Heart sounds: Normal auscultation Murmur: No - Abdominal Inspection: Normal Distension: No distension Bowel sounds: Normal Tenderness: Nontender Organomegaly: No organomegaly - Back Back: Normal, Nontender - Extremities General upper extremity: Normal inspection, Nontender, Normal color, Normal ROM, Normal temperature General lower extremity: Normal inspection, Nontender, Normal color, Normal ROM, Normal temperature, Normal weight bearing. No: Rufino's sign - Neurological Neuro grossly intact: Yes Cognition: Normal Orientation: AAOx4 [place] Coma Scale Eye Opening: Spontaneous [place] Coma Scale Verbal: Oriented [place] Coma Scale Motor: Obeys Commands [place] Coma Scale Total: 15 Speech: Normal Motor strength normal: LUE, RUE, LLE, RLE Sensory: Normal - Psychological Associated symptoms: Normal affect, Normal mood - Skin Skin Temperature: Warm Skin Moisture: Dry Skin Color: Normal Course - Re-evaluation Re-evalutation: 09/18/18 16:07 After performing a Medical Screening Examination, I estimate there is LOW risk for ACUTE CORONARY SYNDROME, RESPIRATORY FAILURE, SEPSIS OR MENINGITIS, thus I consider the discharge disposition reasonable. I have reevaluated this patient multiple times and no significant life threatening changes are noted. The patient and I have discussed the diagnosis and risks, and we agree with discharging home with close follow-up. We also discussed returning to the Emergency Department immediately if new or worsening symptoms occur. We have discussed the symptoms which are most concerning (e.g., changing or worsening pain, trouble swallowing or breathing, neck stiffness, fever) that necessitate immediate return. - Vital Signs Vital signs: Temp Pulse Resp BP Pulse Ox 99.2 F 102 H 16 114/80 97 09/18/18 15:27 09/18/18 15:27 09/18/18 15:27 09/18/18 15:27 09/18/18 15:27 Discharge - Discharge Clinical Impression: Otalgia of right ear URI (upper respiratory infection) Qualifiers: URI type: unspecified URI Qualified Code(s): J06.9 - Acute upper respiratory infection, unspecified Condition: Stable Disposition: HOME, SELF-CARE Additional Instructions: UPPER RESPIRATORY ILLNESS: You have a viral infection of the respiratory passages -- a "cold." This common infection causes nasal congestion, drainage, and often sore throat and cough. It is highly contagious. The disease usually lasts about 10 to 14 days. There is no "cure" for the viral infection -- it must run its course. If there is a complication, such as bacterial infection in the nose, sinuses, middle ear, or bronchial tubes, antibiotics may be required. The antibiotics won't affect the virus. Drink plenty of fluids. A humidifier may help. An expectorant medication or decongestant may make you more comfortable. Use acetaminophen or ibuprofen for fever or aches. See the doctor if fever persists over two days, if there is any significant worsening of your symptoms, or if you simply fail to improve as expected. COUGH-SUPPRESSANT & EXPECTORANT MEDICATION: You are to use a cough medication as needed for relief of symptoms. This medicine is a combination of an expectorant (to make the mucous thinner and more easily "coughed up") and a cough suppressant (to reduce the frequency of coughing). The cough-suppressant medicine is related to narcotics. You may experience mild nausea and sleepiness. Some patients who are very sensitive to narcotics may have stomach pain from this medicine. Taking the medicine with food reduces these side effects. Do not drive or work with machinery until you know how this medicine affects you. The expectorant should have no side effects. Iodine-containing expe ctorants (such as organidin) should not be taken by persons with active thyroid disease unless approved by your doctor. Call the doctor if you develop shortness of breath, hives, rash, itching, l ightheadedness, or severe nausea and vomiting. USE OF ACETAMINOPHEN (Tylenol): Acetaminophen may be taken for pain relief or fever control. It's much safer than aspirin, offering a wider range of "safe" dosages. It is safe during . Some brand names are Tylenol, Panadol, Datril, Anacin 3, Tempra, and Liquiprin. Acetaminophen can be repeated every four hours. The following are maximum recommended dosages: >89 pounds or adults 650 mg to 900 mg Acetaminophen can be repeated every four hours. Maximum dose not to exceed 4000 mg a day. SMOKING: If you smoke, you should stop smoking. The tar and chemicals in cigarette smoke are harmful. Smoking has been shown to cause: emphysema chronic bronchitis lung cancer mouth and throat cancer stomach and pancreas cancer premature aging defects In addition, smoking increases ear and lung infections in children of smokers. You were treated with Claritin 10 mg, Sudafed 30 mg, Mucinex 600 mg in the emergency room for your cough cold congestion. Use these medications until your symptoms are better. This will not treat a viral infection this is just to help your symptoms. Flonase nasal spray will also help your symptoms. Use according to the box instructions. You can also use Chloraseptic spray for your sore throat. Use according to the bottle instructions. Salt and soda gargles will also help with your throat pain. Salt and soda solution 1 quart of water 1 tablespoon of salt 1 teaspoon of baking soda Mixed 3 ingredients together and boil for 1 minute Placed in a covered quart jar Use 1/2 ounce of cold solution to gargle 3 times a day FOLLOW-UP CARE: If you have been referred to a physician for follow-up care, call the physicians office for an appointment as you were instructed or within the next two days. If you experience worsening or a significant change in your symptoms, notify the physician immediately or return to the Emergency Department at any time for re-evaluation. Prescriptions: Ibuprofen [Motrin 600 mg Tablet] 600 mg PO Q8HP PRN #20 tablet PRN Reason: Forms: Smoking Cessation Education Referrals: ANGELICA REYNAGA MD [Primary Care Provider] - Follow up as needed
== END 2018-09-18 16:10 | disposition home or self-care (01) ==
LOC: ER 15:23
DX: J06.9 Acute upper respiratory infection, unspecified (principal); H92.01 Otalgia, right ear; R05 Cough; R09.81 Nasal congestion; J02.9 Acute pharyngitis, unspecified; F17.210 Nicotine dependence, cigarettes, uncomplicated
CPT/HCPCS: 99406; 99282; J3490 ×2

== ENCOUNTER → 2020-04-11 | Outpatient (CLI) | payer MEDICAID ==
[2020-04-11 14:20] VITALS: BP 104/65
--- NOTE | 2020-04-11 14:20 | ER RDC ASSESSMENT REPORT ---
Intake - In the Last 14 days Have you traveled outside [place]?: No Have you been in close contact with someone CONFIRMED: No Worked in Healthcare?: No - Symptoms Subjective Fever([place] feverish): No Chills: No Muscule Aches: No Runny Nose: Yes Sore Throat: No Cough (New or worsening chronic cough): No Shortness of breath: No Nausea or Vomiting: No Headache: Yes Abdominal Pain: No Diarrhea(3 or more loose stools in last 24 hours): No - Do you have any of the following Chronic lung disease: Asthma or emphysema or COPD: No Cystic Fibrosis: No Diabetes: No High Blood Pressure: No Cardiovascular Disease: No Chronic Kidney Disease: No Chronic Liver Disease: No Chronic blood disorder like Sickle Cell Disease: No Weak immune system due to disease or medication: No Neurologic condition that limits movement: No Developmental delay - Moderate to Severe: No Recent (within past 2 weeks) or current : No Morbid Obesity (>100 pounds over ideal weight): No Obesity Comment: Height 5 feet 6 inches weight 145 pounds - Objective Temperature: 98.1 F Pulse Rate: 101 Respiratory Rate: 18 Blood Pressure: 104/65 O2 Sat by Pulse Oximetry: 97 Objective: Given above, testing performed: If Testing Performed: Test Specimen Type Sent to General - General Information source: Patient Notes: Patient here at [facility] for cover testing patient started to have symptoms yesterday with sinus symptoms runny nose and headache. Patient is unsure if she has been exposed to anybody known positive for COVID. Patient sees Dr. Paul's PCP. - Related Data Allergies/Adverse Reactions: No Known Allergies Allergy (Verified 09/18/18 15:23) Past Medical History - General Information source: Patient - Social History Smoking Status: Current Some Day Smoker Family History: Hypertension. denies: Arthritis, CAD, COPD, CVA, DM, Hyperlipidemia, Malignancy, Thyroid Disfunction Renal/ Medical History: Denies: Hx Peritoneal Dialysis Physical Exam - General General appearance: Appears well, Alert In distress: None Notes: PHYSICAL EXAMINATION: GENERAL: Well-appearing and in no acute distress. HEAD: Atraumatic, normocephalic. EYES: sclera anicteric, conjunctiva are normal. ENT: nares patent. Moist mucous membranes. NECK: Normal range of motion, supple without lymphadenopathy LUNGS: CTAB and equal. No wheezes rales or rhonchi. Respirations even and unlabored lung sounds clear. HEART: Regular rate and rhythm without murmurs ABDOMEN: Soft, nontender, normal bowel sounds, no guarding. EXTREMITIES: No cyanosis. NEUROLOGICAL: Normal speech. PSYCH: Normal mood, normal affect. SKIN: Warm, Dry, normal turgor, Diagnostic Results Laboratory Results: Patient informed of negative rapid strep and negative rapid flu results. Pending strep culture pending cover testing results. Provided instructions regarding COVID to include: As a person under investigation for Covid 19, the [facility], division of public health advises you to adhere to the following guidance until your test results are reported to you. If your test result is positive, you will receive additional information from your provider and your local health department at that time. Remain at home until you are cleared by the health provider or public health authorities. Keep a log of visitors to your home, notify any visitors to your home of your isolation status. If you plan to move to a new address or leave the [facility], notify the local health department in your County. Call your doctor or seek care if you have an urgent medical need. Before seeking medical care, call ahead to get instructions from the provider before arriving at the medical office clinic or hospital. Notify them that you are being tested for the virus that causes Covid 19 so that arrangements can be made, as necessary, to prevent transmission to others in the healthcare setting. Next, notify the local health department in your county. If a medical emergency arises and you need to call 911, inform the first responders that you are being tested for the virus that causes Covid 19. Next, notify the local health department in your county. Patient Education/Counseling Counseling/Education: Patient presents with upper respiratory symptoms worrisome for possible Covid 19. Patient does not have emergency worring symptoms such as difficulty breathing, shortness of breath, chest pain, pressure, confusion or cyanosis. Patient appears suitable for discharge. Patient instructed to follow-up with PCP Dr. Paul. To ED for persistent or worsening symptoms. Patient's vital signs are stable and patient is nontoxic in appearance. Good return precautions have been discussed with patient, patient verbalized understanding and is agreeable with discharge plan of care at this time. RDC Discharge - Discharge Clinical Impression: Encounter for screening laboratory testing for COVID-19 virus Condition: Stable Disposition: Home; Selfcare
[2020-04-11 16:38] LABS: A TYPE INFLUENZA AG NEGATIVE (NEGATIVE); B INFLUENZA AG NEGATIVE (NEGATIVE)
== END ==
LOC: RDC 13:24
PROVIDERS: ATTEND Nurse Practitioner Family
DX: Z20.828 Contact with and (suspected) exposure to other viral communicable diseases (principal); R09.89 Other specified symptoms and signs involving the circulatory and respiratory systems; R51 Headache; F17.200 Nicotine dependence, unspecified, uncomplicated
CPT/HCPCS: 87070; 87880; 87635; 87804; C9803; 99201; 99211

== ENCOUNTER 2020-07-13 09:01 | Emergency (ER) | payer MEDICAID ==
[2020-07-13] MEDS ORDERED: IBUPROFEN 600 MG TABLET PO ONE (10:21)
[2020-07-13 11:41] VITALS: BP 108/78
--- NOTE | 2020-07-13 11:53 | ER Document Report ---
ED General - General Chief Complaint: Sore Throat Stated Complaint: SORE THROAT Time Seen by Provider: 07/13/20 10:16 Primary Care Provider: JUSTIN TIPTON MD [Primary Care Provider] - Follow up as needed TRAVEL OUTSIDE OF THE [place] IN LAST 30 DAYS: No - HPI Notes: Chief complaint: Sore throat and ear pain History of present illness: Generally healthy 29-year-old female with history of recurrent episodes of exudative tonsillitis presents now with 2-day history of recurrence of same. Low-grade temperature. No nausea vomiting. No skin rashes. No known allergies. No regular medications. Occasional smoker. - Related Data Allergies/Adverse Reactions: No Known Allergies Allergy (Verified 07/13/20 09:05) Past Medical History - General Information source: Patient, [facility] Records - Social History Smoking Status: Current Some Day Smoker Chew tobacco use (# tins/day): No Frequency of alcohol use: None Drug Abuse: None Family History: Hypertension. denies: Arthritis, CAD, COPD, CVA, DM, Hyperlipidemia, Malignancy, Thyroid Disfunction Patient has homicidal ideation: No Renal/ Medical History: Denies: Hx Peritoneal Dialysis Surgical Hx: Negative - Immunizations Hx Diphtheria, Pertussis, Tetanus Vaccination: Yes Review of Systems - Review of Systems Notes: Constitutional: Negative for fever. HENT: As per HPI. Eyes: Negative for visual changes. Cardiovascular: Negative for chest pain. Respiratory: Negative for shortness of breath. Gastrointestinal: Negative for abdominal pain, vomiting or diarrhea. Genitourinary: Negative for dysuria. Musculoskeletal: Negative for back pain. Skin: Negative for rash. Neurological: Negative for headaches, weakness or numbness. 10 point ROS negative except as marked above and in HPI. Physical Exam - Vital signs Vitals: Temp Pulse Resp BP Pulse Ox 98.2 F 116 H 18 110/74 99 07/13/20 09:04 07/13/20 09:04 07/13/20 09:04 07/13/20 09:04 07/13/20 09:04 - Notes Notes: GENERAL: Slender female approximately stated age appearing in no acute distress. SKIN: Good turgor no rashes. HEAD: Normocephalic atraumatic. EYES: PERRLA. EOMI. Conjunctivae and sclerae clear. EARS: CANALS AND TMS CLEAR. NOSE: CLEAR. MOUTH: Moist mucosa. Good dentition. No stridor or edema. No drooling. Throat: Enlarged tonsils with thick white exudate present. NECK: Supple. No masses or thyromegaly. Bilateral anterior cervical adenopathy. Carotids 2+ without bruits. No JVD. BACK: Symmetrical without tenderness. CHEST: Respirations unlabored. Breath sounds clear and symmetrical. HEART: Regular rhythm. No murmur gallop or rub. ABDOMEN: Soft nontender without masses, organomegaly or rebound. Bowel sounds normally active. No bruits. GENITALIA: Deferred. EXTREMITIES: No edema. No calf tenderness. Cap refill less than 1.5 seconds. Dorsalis pedis and posterior tibial pulses 3+ and symmetrical. NEUROLOGICAL: GCS 15. Alert and oriented x3. Normal gait. Fluent speech. Cranial nerves II through XII intact. Sensorimotor and cerebellar normal. Normal tone. PSYCHIATRIC: Appropriate affect. Course - Vital Signs Vital signs: Temp Pulse Resp BP Pulse Ox 98.2 F 116 H 18 110/74 99 07/13/20 09:04 07/13/20 09:04 07/13/20 09:04 07/13/20 09:04 07/13/20 09:04 Discharge - Discharge Clinical Impression: Exudative tonsillitis Condition: Stable Disposition: HOME, SELF-CARE Instructions: Amoxicillin ([facility]) Additional Instructions: Take [id number] ibuprofen as needed for pain fever. Gargle 3 times daily with a mixture of equal parts of Cepacol mouthwash, hydr ogen peroxide and warm tap water. Return here as needed for new or worsening symptoms: Pain that is worsening or unimproved Uncontrolled vomiting High fever or shaking chills Overall worsening Follow-up with your primary care physician as needed. Prescriptions: Amoxicillin 1 tab PO TID 10 Days #30 tab Forms: Return to School, Smoking Cessation Education Referrals: JUSTIN TIPTON MD [Primary Care Provider] - Follow up as needed
== END 2020-07-13 11:41 | disposition home or self-care (01) ==
LOC: ER 09:01
DX: J03.90 Acute tonsillitis, unspecified (principal); R50.9 Fever, unspecified; F17.200 Nicotine dependence, unspecified, uncomplicated
CPT/HCPCS: 99283; 87070; 87880; J3490; 87077